=== PATIENT | male | born 1965 | race African-American/Black ===

== ENCOUNTER 2019-05-29 02:30 | Inpatient (IN) | payer OTHER ==
[~2019-05-29] VITALS: Ht 188 cm; Wt 149.2 kg
[~2019-05-29 02:30] MED LIST: CEFDINIR300 MG PO; COREG; JANTOVEN10 MG PO
[2019-05-29 02:31] VITALS: BP 180/90
--- NOTE | 2019-05-29 02:40 | NUR ---
PATIENT TO CT AT THIS TIME
--- NOTE | 2019-05-29 03:06 | NUR ---
CTA AT THIS TIME. PT SOMNOLENT, BUT AROUSABLE.
[2019-05-29 03:08] LABS: ABSOLUTE NEUTROPHILS 10.2 thou/uL (1.4-8.2); BASOPHILS 0.3 % (0.0-2.0); EOSINOPHILS 0.7 % (0.0-3.0); HEMATOCRIT 39.5 % (42.0-52.0); HEMOGLOBIN 13.1 gm/dL (14.0-18.0); LYMPHOCYTES 7.4 % (24.0-44.0); MCH 27.8 pg (26.0-34.0); MCV 84.2 fL (80.0-100.0); MONOCYTES 5.1 % (1.0-8.0); PLATELET COUNT 176 thou/uL (150-400); POLYS 86.5 % (36.0-66.0); RDW 15.3 % (10.5-14.5); WBC 11.8 thou/uL (4.0-11.0)
--- NOTE | 2019-05-29 03:08 | NUR ---
MOTHER AND UNCLE AT BEDSIDE. STATES SHE RECEIVED A PHONE CALL AT 2300 WHERE PATIENT STATED THAT HE WAS FEELING DIZZY. MOTHER STATES THAT PATIENT WAS SLURRING HIS WORDS. CO-WORKER, MICHELLE, WAS CALLED AND STATES HE LAST SAW THE PATIENT ACTING NORMAL AT 2230. STATES THAT SECURITY CALLED AND NOTIFIED HIM THAT PATIENT WAS SEEN SHORTLY AFTER MIDNIGHT CLOCKING OUT AND WAS SWEATING PROFUSELY, SHAKY AND WOBBLY. PATIENT'S CO-WORKER IS MICHELLE [phone].
[2019-05-29 03:09] LABS: POC CA IONIZED 3.4 mg/dL (4.5-5.3); POC CREATININE 1.2 mg/dL (0.6-1.3); POC HEMOGLOBIN 8.5 g/dL (14.0-18.0); POC POTASSIUM 5.5 mmol/L (3.5-5.1)
[2019-05-29 03:20] LABS: ANION GAP 9 mmol/L (7-16); BUN 40 mg/dL (7-18); CALCIUM 9.3 mg/dL (8.5-10.1); CHLORIDE 95 mmol/L (98-107); CO2 26 mmol/L (21-32); CREATININE 2.2 mg/dL (0.7-1.3); GLUCOSE 401 mg/dL (74-106); POTASSIUM 4.1 mmol/L (3.5-5.1); SODIUM 130 mmol/L (136-145)
[2019-05-29 03:22] LABS: APTT 47.1 Seconds (24.5-32.8); INR 3.3; PROTIME 33.9 Seconds (9.3-11.4)
[2019-05-29 03:31] LABS: ALBUMIN 3.5 g/dL (3.4-5.0); SGOT 17 U/L (15-37); SGPT 31 U/L (30-65); TOTAL BILIRUBIN 0.8 mg/dL (<0.1-1.0); TOTAL PROTEIN 8.1 g/dL (6.4-8.2); TROPONIN-I <0.06 ng/mL (<0.06)
[2019-05-29] MEDS ORDERED: COREG25 MG PO (03:31)
[2019-05-29] MEDS ORDERED: LIPITOR 20 MG T20 M1 PO (03:31)
[2019-05-29] MEDS ORDERED: TRIAMTERENE-HC1 EAC2 PO (03:32)
[2019-05-29] MEDS ORDERED: COZAAR 25 MG TA25 M1 PO ×2 (03:32→03:33)
[2019-05-29] MEDS ORDERED: AMARYL4 MG PO (03:32)
--- NOTE | 2019-05-29 03:33 | NUR ---
PHARMACY NOTIFIED THAT TPA IS NOT TO BE GIVEN BASED ON EXCLUSION CRITERIA AND INR LEVEL. (CURRENT LEVEL 3.3) NEUROLOGY - V[place]Y IS ON HIS WAY TO EVALUATE PATIENT. WAS INFORMED THAT NIHSS SCORE HAS INCREASED FROM 7 TO 12 UPON REPEAT. ED PROVIDER BACK TO BEDSIDE FOR RE-EVALUATION
[2019-05-29 03:36] LABS: URINE BILIRUBIN NEGATIVE (Negative); URINE BLOOD 1+ (Negative); URINE CLARITY CLEAR; URINE COLOR YELLOW; URINE GLUCOSE-RANDOM* 3+ (Negative); URINE KETONES NEGATIVE (Negative); URINE LEUKOCYTES NEGATIVE (Negative); URINE NITRITE NEGATIVE (Negative); URINE PROTEIN (DIPSTICK) NEGATIVE (Negative); URINE UROBILINOGEN 0.2 E.U./dl (0.2-1.0)
[2019-05-29 04:06] LABS: BACTERIA 1-9 Few /HPF (None Seen); CASTS None Seen /LPF (None Seen); CRYSTALS None Seen /LPF (None Seen); SQUAMOUS >10 Many /LPF (0-3); URINE RBC 3-10 Few /HPF (0-2); URINE WBC 0-5 Rare /HPF (0-5)
[2019-05-29 04:27] LABS: AMP/METHAMP Negative (Negative); BARBITURATES Negative (Negative); BENZODIAZEPINES Negative (Negative); COCAINE Negative (Negative); METHADONE Negative (Negative); OPIATES Negative (Negative); PCP Negative (Negative)
[2019-05-29 08:30] VITALS: BP 154/88
[2019-05-29 08:57] LABS: HEMOGLOBIN 12.7 gm/dL (14.0-18.0); MCH 27.9 pg (26.0-34.0); MCHC 33.3 g/dL (28.0-37.0); MCV 83.9 fL (80.0-100.0); RBC 4.53 mil/uL (4.50-6.00); RDW 15.4 % (10.5-14.5); WBC 9.4 thou/uL (4.0-11.0)
[2019-05-29 09:10] LABS: ALBUMIN 3.1 g/dL (3.4-5.0); ANION GAP 8 mmol/L (7-16); BUN 34 mg/dL (7-18); CALCIUM 8.9 mg/dL (8.5-10.1); CHLORIDE 96 mmol/L (98-107); CO2 28 mmol/L (21-32); CREATININE 1.9 mg/dL (0.7-1.3); GLUCOSE 336 mg/dL (74-106); MAGNESIUM 1.7 mg/dL (1.8-2.4); POTASSIUM 3.9 mmol/L (3.5-5.1); SGOT 13 U/L (15-37); SGPT 29 U/L (30-65); SODIUM 132 mmol/L (136-145); TOTAL BILIRUBIN 0.8 mg/dL (<0.1-1.0); TOTAL PROTEIN 7.3 g/dL (6.4-8.2)
[2019-05-29 09:31] LABS: CHOLESTEROL 114 mg/dL (<200); HDL CHOLESTEROL 26 mg/dL (>40); LDL CHOLESTEROL 59 mg/dL (<100); TC:HDL 4.4 Ratio (Not establshd); TRIGLYCERIDE 146 mg/dL (<150); VLDL 29 mg/dL (<40)
--- NOTE | 2019-05-29 10:01 | HC ---
[facility] [place] [address] CONSULTATION Name: BISMARK STEIN Room #: 355-P ADM IN M.R.#: [id number] Admission: 05/29/19 Attend Phys: Juan Corbin MD Discharge: Date of : 69 Report #: [id number] THIS REPORT FOR: //name// CC: FAM unknown Leti Esquivel DATE OF SERVICE: 05/29/2019 HISTORY OF PRESENT ILLNESS: This is a 53-year-old male patient who is unable to provide any history at all. The patient follows simple commands intermittently, but on my examination, he has no speech. I talked to the emergency room physician extensively and looks like the symptoms started between 10:30 to 11:00. The best I can tell from emergency room physician, the symptom may have progressed since that time because around 10:30 or 11:00 or somewhere along the line, he had some speech, but when I examined him, he really does not have any speech. Before a consultation for Neurology was called, the emergency room physician has done a noncontrast CT scan of the head and subsequently, she has done a CT stroke protocol, which is CT angiogram and perfusion. All of it was done before a Neurology consultation was called. As I understood from her, the CT was showing some chronic changes, but no acute changes, but she has not gotten the report of the CT angiogram and perfusion and she was trying to get that. Because of time limitation, I did the quick review of history as well as quick examination. This patient has a history of hypertension, diabetes, atrial flutter. He was on dialysis. He has a mitral valve replaced. He is on sodium and subsequently, his INR came out to be 3.3. PHYSICAL EXAMINATION: Limited. He barely opens his eyes. When I open his eyes, he does not move his eyes in any direction for me. 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 He can move the left side. He can follow simple commands intermittently, but he is not able to express anything at all. IMPRESSION: Clinically, it would appear this patient had some catastrophic event. My bigger concern will be that he may have had basilar artery thrombosis or a large left hemispheric stroke. I asked the emergency room physician to contact the Radiology again because we need the CT angiogram to be read as soon as possible. My concern is that if he has something in the basilar artery or in any of the other major vessel, he needs to be transferred as soon as possible. As mentioned above, his noncontrast CT of the head and CT angiogram and perfusion was done before the consultation was requested. If this patient stays here, I will also like to have a stat MRI of the brain and [place] [address] CONSULTATION Name: BISMARK STEIN Room #: 355-P [facility] IN .R.#: [id number] Admission: 05/29/19 Attend Phys: Juan Corbin MD Discharge: Date of : 69 Report #: [id number] him up for any evidence of endocarditis because that will predispose the patient to bleed. We have to have neurosurgical coverage in this hospital to admit this kind of patient here and if there is any intervention required, we will not be able to do that here. I am waiting for the result for the CT angiogram and I will discuss with the emergency room physician, but my recommendation was also to give him at least some fluids or maybe consult Nephrology because he got some contrast and his creatinine is 2.8 and GFR is only 38. Thank you very much. Addendum. This addendum is being added at the time of signing this note and is a log of the events since I dictated my consult. Patient's CT angiogram and perfusion did not demonstrate any blockage in the large vessels. I personally called the radiologist who read that and he indicated that the basilar artery was small but patent. I also tried to review the films. I discussed the patient with the emergency room physician again and recommended that we get this reviewed by neuroradiologist and she did get it reviewed by neuroradiologist and they indicated that no intervention can be done and recommended that the patient stays here. I recommended MRI of the brain to be done if the patient's heart valve is compatible with MRI. MRI was done and it demonstrated left thalamic stroke. He had a prior right-sided stroke predisposing him for pseudobulbar features. It is a small vessel stroke and their deficit can fluctuate for several days and typically becomes worse over a period of time as happened in this patient's case. Unfortunately not much can be done acutely. He is not TPA candidate because of his INR and being on Coumadin. He is not an interventional candidate and he was evaluated for that. Main management is going to be a very close observation and PT OT and rehabilitation. I also may mention that the patient got contrast. I talked to emergency room physician and she indicated that she gave contrast because I stat creatinine was 1.2 and it is clearly documented in the record that is what I stat creatinine has shown. It looks like that was lab errors and because of that I will recommend consulting nephrology for the management to avoid any renal injury especially in light of the patient's prior kidney problems. He appears to be doing well in that regard and in fact his creatinine is down to 1.9 from his baseline of 2.2. Patient had a stroke in spite of being fully anticoagulated. He appeared to have a small vessel disease. However he will require an extensive workup to see what can be done to prevent another stroke from happening in future and from what ever the initial grade exam was he will probably require extensive rehabilitation. More than 70 minutes of time was spent taking care of this patient and majority of that time was spent counseling and coordinating his care including reviewing his films and talking to multiple health resident care manager [address] [address] CONSULTATION Name: EMILBISMARK L Room #: 355-[facility] IN [facility].#: [id number] Admission: 05/29/19 Attend Phys: Juan Corbin MD Discharge: Date of : 69 Report #: [id number] patient was checked out to Dr. Salomon this morning and she will follow-up with you starting today. <ELECTRONICALLY SIGNED> By: Thee Franklin MD 05/29/19 1001 0414 0444 Thee Franklin MD /nt
[2019-05-29 11:39] VITALS: BP 151/82
[2019-05-29 13:25] LABS: CALCIUM 9.5 mg/dL (8.5-10.1); CREATININE 2.2 mg/dL (0.7-1.3); PHOSPHORUS 2.7 mg/dL (2.5-4.9)
--- NOTE | 2019-05-29 14:12 | EKG ---
[address] [place] [address] ELECTROCARDIOGRAM REPORT Name: BISMARK STEIN Dayana Room #: 355-P ADM IN M.R.#: [id number] Admission: 05/29/19 Attend Phys: Juan Corbin MD Discharge: Date of : 69 Report #: [id number] THIS REPORT FOR: //name// [facility] ED Test Date: 2019-05-29 Test Time: 03:18:37 Pat Name: BISMARK STEIN Department: Room: [facility] Gender: M Database Admin: huey : 1965 Requested By: Leti Esquivel Order Number: [id number] MD: Romero Reed Measurements Intervals [place] Rate: 77 P: 80 CA: 205 QRS: 11 QRSD: 83 T: 47 QT: 399 QTc: 452 Interpretive Statements Sinus rhythm Borderline prolonged CA interval Compared to ECG 05/27/2013 20:08:32 No significant change was found Electronically Signed On 05-29-2019 14:12:20 CDT by Romero Reed [email or web address] <ELECTRONICALLY SIGNED> By: Romero Reed MD, [facility] 05/29/19 1412 0318 0318 Romero Reed MD, [facility] /EPI
--- NOTE | 2019-05-29 14:19 | NUR ---
ASSESSMENT: CM REVIEWED CHART AND MET WITH PATIENT AT THE BEDSIDE. PT WAS ADMITTED FOR POSSIBLE STROKE. PT REPORTS HE LIVES IN A HOUSE ALONE. PT REPORTS HE HAS ABOUT 12 STEPS WITH HANDRAILS TO ENTER TO THE MAIN LEVEL. PT REPORTS ONCE ON THE MAIN LEVEL HE HAS NO MORE STEPS. PT REPORTS THAT HE AMBULATES INDEPENDENTLY. PT STATES HE HAS A GRAB BAR IN THE SHOWER. CM DISCUSSED ROLE. WAITING ON PT/OT TO SEE PATIENT AND 5N HAS BEEN CONSULTED. IF PATIENT QUALIFIES FOR 5N ACUTE REHAB HE IS AGREEABLE AND WE WILL HAVE TO SEEK INSURANCE AUTH. 5N LIASON NOTIFIED AND FOLLOWING PATIENT. AWAITING INPUT FROM 5N AND PT/OT EVALS. CM WILL CONTINUE TO FOLLOW TO ASSIST NEEDED.
--- NOTE | 2019-05-29 15:45 | HC ---
[facility] [place] [address] CONSULTATION Name: BISMARK STEIN Room #: 355-P ADM IN M.R.#: [id number] Admission: 05/29/19 Attend Phys: Juan Corbin MD Discharge: Date of : 69 Report #: [id number] THIS REPORT FOR: //name// CC: FAM unknown Juan Corbin DATE OF SERVICE: 05/29/2019 CARDIOLOGY CONSULTATION. INDICATION: Mental status change. HISTORY OF PRESENT ILLNESS: This is a 53-year-old gentleman with a past medical history significant for endocarditis, mitral valve replacement, CVA, diabetes mellitus, hypertension, paroxysmal atrial fibrillation, presenting with slurred speech. Apparently, he was at work and developed diaphoresis with difficulty with his speech. The patient reports that he was unsteady with his gait and did not feel well. He reports not eating normally for the past several days. He denies any fevers, chills, vomiting or diarrhea. He did have some abdominal pain. He was brought to the hospital for further evaluation. An MRI reveals an acute infarct. 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 ALLERGIES: None. MEDICATIONS: At home include Lipitor 10 mg, Coreg 25 mg b.i.d., Amaryl, insulin, Dyazide once a day and warfarin as directed. SOCIAL HISTORY: Denies tobacco use. FAMILY HISTORY: Negative for premature CAD. REVIEW OF SYSTEMS: A full 10-point review of systems performed. Only the pertinent positives and negatives are described in the HPI. PHYSICAL EXAMINATION: VITAL SIGNS: Blood pressure is 130/60, heart rate is 70 beats per minute. GENERAL APPEARANCE: This is an overweight male in no acute respiratory distress. HEENT: Normocephalic, atraumatic. Oral mucosa moist. NECK: Supple. LUNGS: Clear to auscultation. [facility] [address] [place] [address] CONSULTATION Name: BISMARK STEIN Room #: [address] [place] [address] [place] [facility].#: [id number] Admission: 05/29/19 Attend Phys: Juan Corbin MD Discharge: Date of : 69 Report #: [id number] CARDIAC: Regular rate and rhythm, S1, S2 positive. ABDOMEN: Protuberant, soft, nontender. EXTREMITIES: No cyanosis, 1+ bilateral edema. LABORATORY VALUES: White count is 9.4, hemoglobin is 12.7. INR is 3.3. Creatinine is 1.9. MRI: MRI reveals an acute left thalamic infarct, old posterior right MCA infarct. ASSESSMENT AND PLAN: 1. Cerebrovascular accident/slurred speech, his speech has improved, presented with gait instability/weakness and slurred speech. MRI findings noted. We will need an echo, rule out embolic causes. He has no history of fever, no symptoms to suggest endocarditis. However, given his prior history, we would check cultures. Agree with proceeding with a RODRIGUEZ. 2. Hypertension, stable blood pressure, continue with medications. 3. Mechanical prosthetic valve, we will check an echo, continue with warfarin therapy. 4. Diabetes mellitus, continue with insulin and check fingersticks. 5. Edema, can resume diuretic. <ELECTRONICALLY SIGNED> By: Raymundo Eaton MD 05/29/19 1545 0926 1049 Raymundo Eaton MD /nt
[2019-05-29 16:03] VITALS: BP 153/81
--- NOTE | 2019-05-29 16:21 | NUR ---
ASSUMED CARE OF PATIENT AT ADMISSION AROUND 0800, PATIENT SCAN SHOWED HE HAD A CVA. CONDUCTED NIHSS ASSESSMENTS Q4 WITH PATIENT RECIEVING A SCORE OF 7 THEN 8 THEN BACK TO 7. PATIENT HAS BEEN DROWSY ALL DAY. PATIENT PASSED SWALLOW STUDY WITH SPEECH THERAPY AND IS EATING WELL. PATIENT'S FATHER AND MOTHER HAVE BEEN VISITING THROUGHOUT THE DAY. FOCUS TODAY HAS BEEN MONITORING PATIENTS NEURO STATUS WHICH HAS REMAINED ABOUT THE SAME ALL DAY.
[2019-05-29 19:28] VITALS: BP 125/76
[2019-05-29 23:57] VITALS: BP 151/95
[2019-05-30 04:04] VITALS: BP 146/86
[2019-05-30 04:07] LABS: GLYCOHEMOGLOBIN (HGB A1C) 13.7 % (4.8-5.6)
[2019-05-30 05:14] LABS: HEMATOCRIT 37.2 % (42.0-52.0); HEMOGLOBIN 12.4 gm/dL (14.0-18.0); MCH 27.9 pg (26.0-34.0); MCHC 33.3 g/dL (28.0-37.0); RBC 4.43 mil/uL (4.50-6.00); RDW 15.6 % (10.5-14.5); WBC 7.9 thou/uL (4.0-11.0)
[2019-05-30 05:17] LABS: CALCIUM 8.9 mg/dL (8.5-10.1); CREATININE 1.7 mg/dL (0.7-1.3); MAGNESIUM 1.8 mg/dL (1.8-2.4); POTASSIUM 4.1 mmol/L (3.5-5.1)
[2019-05-30 05:27] LABS: CHOLESTEROL 118 mg/dL (<200); HDL CHOLESTEROL 28 mg/dL (>40); LDL CHOLESTEROL 69 mg/dL (<100); TC:HDL 4.2 Ratio (Not establshd); TRIGLYCERIDE 108 mg/dL (<150); VLDL 22 mg/dL (<40)
[2019-05-30 05:30] LABS: SERUM ASSESSMENT Clear
[2019-05-30 07:10] VITALS: BP 150/79
--- NOTE | 2019-05-30 08:31 | NUR ---
progress pt a/o x4 not oob this shift slept most of night nih scale scoring 6 to 7 seems to have clearer speech no difficulty swallowing able to open left eye more still sensitive to light propeller tester are equal moderately strong, legs have moderate strength and pt has been exercising when awake in bed scd's applied continue to monitor
[2019-05-30 11:16] VITALS: BP 134/80
--- NOTE | 2019-05-30 12:39 | HC ---
[facility] [place] [address] [place] [address] CONSULTATION Name: BISMARK STEIN Room #: 355-P ADM IN M.R.#: [id number] Admission: 05/29/19 Attend Phys: Juan Corbin MD Discharge: Date of : 69 Report #: [id number] THIS REPORT FOR: //name// CC: FAM unknown Juan Corbin DATE OF SERVICE: 05/29/2019 CONSULTING PHYSICIAN: Dr. Charlene Rivera. REASON FOR CONSULTATION: Uncontrolled type 2 diabetes mellitus. HISTORY OF PRESENT ILLNESS: This is a 53-year-old male patient whose medical background is noted for type 2 diabetes mellitus, chronic kidney disease, hypertension, history of CVA, hyperlipidemia. The patient was brought yesterday to [facility]'s ER following mental status changes and slurred speech. The patient was also reported as having diaphoresis and confusion as well as lower extremity weakness. When I interviewed him today, he was able to respond to verbal stimuli, but was rather aphasic and I could not make some of his answers at least. Also, he preferred to close his eyes shut throughout most of my interview with him. The patient knows that he has had type 2 diabetes mellitus for multiple years. He said that he does not check his blood sugars often at home and that he does not have much issue with hypoglycemia. When asked about his home-based antidiabetic regimen, he implicated that he does take injections, but then could not elaborate on the type or dosage of such injections. His mother also indicated that he is likely taking insulin but not Levemir because she knows this one specifically. His chart notes that he is on glimepiride 4 mg daily. Given the patient's limited interaction, I was not able to discern whether he has a documented retinopathy or neuropathy. REVIEW OF SYSTEMS: CONSTITUTIONAL: Fatigue, tiredness, but not fever or chills. PULMONARY: No shortness of breath, cough or hemoptysis. CARDIAC: Negative for chest pain, palpitations, syncope or presyncope. GASTROINTESTINAL: Negative for abdominal pain, nausea, vomiting or changes in bowel movement frequency. NEUROLOGY: Noted for aphasia, altered level of consciousness, but no seizures or loss of consciousness. No reports of numbness. SKIN: No ulceration, rash or itching. Otherwise, review of systems is noncontributory other than those mentioned in HPI. PAST MEDICAL HISTORY: [address] [address] CONSULTATION Name: BISMARK STEIN Room #: 355-P [facility] IN [facility]#: [id number] Admission: 05/29/19 Attend Phys: Juan Corbin MD Discharge: Date of : 69 Report #: [id number] 1. Type 2 diabetes mellitus. 2. Hypertension. 3. Hyperlipidemia. 4. History of cerebrovascular accident. 5. History of mitral valve replacement. 6. Obesity. 7. Chronic kidney disease with a history of acute renal injury, requiring dialysis in the past. OUTPATIENT MEDICATIONS: Known for glimepiride 4 mg daily, losartan 25 mg daily, atorvastatin 20 mg daily, carvedilol 25 mg b.i.d., warfarin 10 mg daily, triamterene/hydrochlorothiazide 37.5/25 mg daily. ALLERGIES: No known drug allergies. FAMILY HISTORY: Noncontributory. SOCIAL HISTORY: Single, lives alone. Denies use of tobacco, alcohol or illicit drugs. PHYSICAL EXAMINATION: GENERAL: Middle-aged -[place] male patient who seems sleepy, lethargic, but not in apparent distress. VITAL SIGNS: Blood pressure is 151/82 mmHg, heart rate is 67 beats per minute, respirations 20 per minute, temperature of 36.4 degrees. HEENT: Anicteric sclerae. Intact extraocular motions. NECK: Supple, without JVD, carotid bruits, lymphadenopathy. I do not appreciate thyromegaly. CHEST: Noted for distant breath sounds, scattered rales, but no crackles or wheezes. CARDIOVASCULAR: Regular rate and rhythm without murmurs or gallops. ABDOMEN: Obese, but soft and lax without tenderness or organomegaly. Has active bowel sounds. EXTREMITIES: Lower extremity exam is noted for trace ankle edema bilaterally, but no skin breaks or lacerations. SKIN: Intact without ulceration or discoloration. NEUROLOGIC: Lethargic, but arousable. He is not able to answer all of my questions. He is a bit aphasic. PSYCHIATRIC: Psych evaluation could not be performed at the present time due to the limited interaction the patient has displayed. LABORATORY RESULTS: Sodium 132, potassium 3.9, chloride 96, CO2 of 28, anion gap 8, BUN 34, creatinine 1.9, glucose 336, AST 13, calcium 8.9, magnesium 1.7, alkaline phosphatase 117, ALT 29, total protein 7.3, albumin 3.1, GFR 46. Total cholesterol 114, triglycerides 146, HDL 26, LDL 59. Tox screen was done and was negative. White blood count 9.4, hemoglobin 12.7, hematocrit 38, platelets 165, [address] [address] CONSULTATION Name: BISMARK STEIN Room #: 355-P [facility] IN [place].#: [id number] Admission: 05/29/19 Attend Phys: Juan Corbin MD Discharge: Date of : 69 Report #: [id number] ____ 8.5. Hemoglobin A1c was ordered and is pending. TSH is 1.198. Ionized calcium is low at 3.4. ASSESSMENT AND PLAN: 1. Type 2 diabetes mellitus, uncontrolled. The patient seems to have an uncontrolled baseline, although it is not possible at the present time to collect a solid image of that baseline given the patient's limited interaction. Blood glucose values since arrival to the hospital have been rather uncontrolled and outside the desired range with these ranging from 297-399 mg/dL. That being said, I will place the patient on a basal bolus regimen in the form of Lantus insulin 18 units daily to go along with Humalog supplemental scale moderate dosage and continue to monitor his blood glucose values every 6 hours to adjust his regimen as needed. Hemoglobin A1c was ordered and is pending and should shed some light on the patient's baseline status. 2. Hypertension. The patient's overall blood pressure control is improving. He is to continue with the current regimen for the time being. 3. Hyperlipidemia. The patient's lipid panel is indicative of adequate control. He is to continue with that. 4. Hypocalcemia. This is noticeable as significant. I will investigate this further with a PTH and vitamin D levels. It is notable that his magnesium is low, which could be at least partially responsible for the hypocalcemia. I certainly appreciate this consultation by Dr. Rivera. <ELECTRONICALLY SIGNED> By: Alfonzo Hughes MD 05/30/19 1239 1236 2220 Alfonzo Hughes MD /nt
[2019-05-30 14:14] LABS: INR 3.6; PROTIME 36.8 Seconds (9.3-11.4)
--- NOTE | 2019-05-30 14:17 | 2DMMODE ---
[facility] [address] [facility] [address] [place] [address] 2 D/M-MODE ECHOCARDIOGRAM Name: EMILBISMARK L Room #: 355-P [facility] IN M.R.#: [id number] Admission: 05/29/19 Attend Phys: Juan Corbin, Discharge: Date of : 69 Date of Service: 05/30/19 1416 Report #: [id number] THIS REPORT FOR: //name// APPROVED REPORT Study performed: 05/30/2019 09:39:11 EXAM: Comprehensive 2D, Doppler, and color-flow Echocardiogram Patient Location: Bedside Room #: 355 Status: on-call BSA: 2.69 HR: 70 bpm BP: 150/75 mmHg Rhythm: NSR Other Information Study Quality: Adequate Indications Mitral valve replacement. Hx: Endocarditis, PAF, CVA, DM, morbid obesity. 2D Dimensions RVDd: 38.69 mm IVSd: 13.00 (7-11mm) LVOT Diam: 20.10 (18-24mm) LVDd: 45.16 mm PWd: 13.00 (7-11mm) Ascending Ao: 32.22 (22-36mm) LVDs: 30.25 (25-40mm) Aortic Root: 32.60 mm Volumes Left Atrial Volume (Systole) Single Plane 4CH: 65.87 mL Single Plane 2CH: 77.98 mL LA ESV Index: 28.00 mL/m2 Aortic Valve AoV Peak James.: 1.37 m/s AO Peak Gr.: 7.46 mmHg LVOT Max P.27 mmHg LVOT Max V: 0.90 m/s SMITA Vmax: 2.10 cm2 Mitral Valve MV Decel. Time: 272.57 ms MV PHT: 79.04 ms [facility] [place] [address] 2 D/M-MODE ECHOCARDIOGRAM Name: BISMARK STEIN Dayana Room #: [address] [place] [address] [place] ..#: [id number] Admission: 05/29/19 Attend Phys: Juan Corbin, Discharge: Date of : 69 Date of Service: 05/30/19 1416 Report #: [id number] MVA (PHT): 2.72 cm2 IVRT: 38.06 ms Pulmonary Valve PV Peak James.: 1.00 m/s PV Peak Gr.: 3.99 mmHg Left Ventricle The left ventricle is normal size. There is normal LV segmental wall motion. Mild concentric left ventricular hypertrophy. Left ventricular systolic function is normal. LVEF is 60-65%. Right Ventricle The right ventricle is normal size. The right ventricular systolic function is normal. Atria The left atrium size is normal. The right atrium size is normal. Aortic Valve The aortic valve is normal in structure. No aortic regurgitation is present. There is no aortic valvular stenosis. Mitral Valve There is a mechanical mitral valve. Mean pressure gradient of 5mmHg. Interrogation of regurgitaion is inadequate due to valve artifact. Tricuspid Valve The tricuspid valve is normal in structure. There is no tricuspid valve regurgitation noted. Unable to assess PA pressure. Pulmonic Valve The pulmonary valve is normal in structure. There is no pulmonic valvular regurgitation. Great Vessels The aortic root is normal in size. The ascending aorta is normal in size. IVC is not well visualized. Pericardium There is no pericardial effusion. <Conclusion> The left ventricle is normal size. Mild concentric left ventricular hypertrophy. [address] [address] 2 D/M-MODE ECHOCARDIOGRAM Name: BISMARK STEIN Dayana Room #: 355-P [facility] IN ..#: [id number] Admission: 05/29/19 Attend Phys: Juan Corbin, Discharge: Date of : 69 Date of Service: 05/30/19 1416 Report #: [id number] LVEF is 60-65%. The right ventricle is normal size. The left atrium size is normal. The right atrium size is normal. The aortic valve is normal in structure. No aortic regurgitation is present. There is no aortic valvular stenosis. There is a mechanical mitral valve. Mean pressure gradient of 5mmHg. The tricuspid valve is normal in structure. There is no pericardial effusion. <ELECTRONICALLY SIGNED> By: Porfirio Badillo MD 05/30/19 [phone] Porfirio Badillo MD /INF
--- NOTE | 2019-05-30 15:39 | NUR ---
PT WALKED WITH PT X 2 TODAY AND DID VERY WELL USING WALKER/GAIT AND 1 ASSIST...HE DOES NOT DRAG FEET AND IS VERY STEADY...
[2019-05-30 15:51] VITALS: BP 152/81
--- NOTE | 2019-05-30 19:09 | NUR ---
FALL PREC IN PLACE..WALKS WITH PT X 2 WITH STEADY GAIT...INSTRUCTED TO CALL FOR ASSIST WHEN OUT OF BED...
[2019-05-30 19:20] VITALS: BP 109/57
--- NOTE | 2019-05-31 03:16 | NUR ---
PATIENT IS ADVANCING IN HIS CARE PLAN. VITAL SIGNS STABLE WITH PATIENT HAVING NO COMPLAINTS OF NAUSEA. PATIENT DID COMPLAIN OF PAIN IN LOWER EXTREMITY WHICH WAS TREATED EFFECTIVELY WITH MEDICATION AND REPOSITIONING. ALERT AND ORIENTED THROUGHOUT SHIFT PATIENT WAS ABLE TO PARTICIPATE IN CARE AND CALL APPROPRIATELY FOR NEEDS. NIH ASSESSMENT PER PROVIDERS ORDER WITH PATIENT SCORING LOW. UP TO THE BEDSIDE COMMODE WITH ASSISTANCE INCIDENT FREE, PATIENT IS CONSIDERED A HIGH FALL RISK. CONTINUE PLAN OF CARE.
[2019-05-31 04:14] VITALS: BP 122/67
[2019-05-31 07:06] VITALS: BP 148/81
[2019-05-31 07:17] LABS: HEMOGLOBIN 12.6 gm/dL (14.0-18.0); MCH 27.9 pg (26.0-34.0); MCHC 33.1 g/dL (28.0-37.0); MCV 84.3 fL (80.0-100.0); RBC 4.51 mil/uL (4.50-6.00); RDW 15.4 % (10.5-14.5); WBC 6.3 thou/uL (4.0-11.0)
[2019-05-31 07:30] LABS: CALCIUM 8.8 mg/dL (8.5-10.1); CREATININE 1.8 mg/dL (0.7-1.3); INR 3.5; MAGNESIUM 1.6 mg/dL (1.8-2.4); POTASSIUM 3.9 mmol/L (3.5-5.1); PROTIME 36.4 Seconds (9.3-11.4)
[2019-05-31 11:12] VITALS: BP 142/87
[2019-05-31 15:48] VITALS: BP 142/79
--- NOTE | 2019-05-31 17:32 | NUR ---
ASSUMED CARE OF PT AT 0700. PT AOX4 IN NO ACUTE DISTRESS. NIH 1. AMBULATED WITH PT. COMPLAINS OF PAIN TO R FOOT WITH ACTIVITY. POST OP BOOT ORDERED PER ORTHO. NOW COMPLAINING OF R KNEE PAIN AFTER PHYSICAL THERAPY - MINIMAL RELIEF WITH HYDROCODONE - VOLTEREN GEL ORDERED. BLOOD SUGARS IMPROVED -ADJUSTED PER ENDO. ANTICIPATING D/C TO REHAB TOMORROW. PT PROGRESSING TOWARD POC GOALS.
[2019-05-31 19:05] VITALS: BP 129/70
--- NOTE | 2019-06-01 03:11 | NUR ---
PATIENT IS PROGRESSING IN HIS CARE PLAN. VITAL SIGNS STABLE WITH PATIENT HAVING NO COMPLAINTS OF NAUSEA. PATIENT COMPLAINED OF PAIN IN RIGHT FOOT AND KNEE WHICH WAS TREATED APPROPRIATELY THROUGH MEDICATIONS AND NON PHARMACOLOGICAL INTERVENTION. FULLY ORIENTED, PATIENT IS ABLE TO CALL APPROPRIATELY FOR NEEDS AND PARTICIPATE IN CARE. NIH COMPLETED PER ORDER WITH PATIENT SCORING ONE. HE HAS BEEN NPO FROM MIDNIGHT IN ANTICIPATION OF TODAYS PROCEDURE. PATIENT IS ANXIOUS FOR DISCHARGE TO [facility] SOON SO THAT HE CAN BE "ONE STEP CLOSER TO HOME." CONTINUE PLAN OF CARE.
[2019-06-01 03:12] VITALS: BP 124/80
[2019-06-01 05:03] LABS: HEMATOCRIT 35.8 % (42.0-52.0); HEMOGLOBIN 12.1 gm/dL (14.0-18.0); MCH 28.7 pg (26.0-34.0); MCHC 33.8 g/dL (28.0-37.0); RBC 4.21 mil/uL (4.50-6.00); RDW 15.8 % (10.5-14.5); WBC 8.9 thou/uL (4.0-11.0)
[2019-06-01 05:11] LABS: CALCIUM 8.7 mg/dL (8.5-10.1); CREATININE 1.7 mg/dL (0.7-1.3); MAGNESIUM 1.6 mg/dL (1.8-2.4); POTASSIUM 3.9 mmol/L (3.5-5.1)
[2019-06-01 05:12] LABS: INR 3.9; PROTIME 40.2 Seconds (9.3-11.4)
[2019-06-01 07:06] VITALS: BP 137/80
--- NOTE | 2019-06-01 10:08 | TEE ---
[facility] [address] [place] [address] TRANSESOPHAGEAL ECHOCARDIOGRAM Name: EILEENROMANBISMARK L Room #: 355-P [facility]#: [id number] Admission: 05/29/19 Attend Phys: Juan Corbin, Discharge: Date of : 69 Date of Service: 06/01/19 1008 Report #: [id number] THIS REPORT FOR: //name// APPROVED REPORT Study performed: 06/01/2019 08:55:34 EXAM: Comprehensive 2D, Doppler, and color-flow Echocardiogram Patient Location: [facility] Room #: 11 Status: routine BSA: 2.69 HR: 70 bpm BP: 136/73 mmHg Rhythm: NSR Other Information Study Quality: Excellent Indications MVR Echo Enhancing Agent Indication: Rule out Shunt Agent(s) / Amount(s) Used: Agitated Saline 7 cc Mitral Valve MV Peak Gr.: 16.56 mmHg MV Mean Gr.: 5.65 mmHg MV Max James.: 2.03 m/s MV Mean James.: 1.03 m/s MV VTI: 446.63 mm Procedure After obtaining informed consent, patient underwent transesophageal echo in the [employer]. Type of Sedation : Conscious Sedation Sedation was administered by Latrice HARTLEY. Sedation was achieved intravenously with: Versed (2 mg) Fentanyl (100 mcg) Transesophageal probe was inserted and advanced into esophagus without difficulty by Romero Reed MD. Echo enhancement indication: R/O Septal defect. Echo enhancement agent administered: Agitated Saline [facility] [address] [place] [address] TRANSESOPHAGEAL ECHOCARDIOGRAM Name: BISMARK STEIN Dayana Room #: 355-P [facility] IN .R.#: [id number] Admission: 05/29/19 Attend Phys: Juan Corbin, Discharge: Date of : 69 Date of Service: 06/01/19 1008 Report #: [id number] The RODRIGUEZ was performed without complications. Throughout the procedure, the blood pressure, pulse oximetry, cardiac rhythm, and rate were monitored. The patient tolerated the procedure without adverse effects. Recovery from conscious sedation was uneventful and vital signs were stable. Left Ventricle The left ventricle is normal size. There is normal LV segmental wall motion. There is normal left ventricular wall thickness. The left ventricular systolic function is normal. The left ventricular ejection fraction is within the normal range. LVEF is 55-60%. Right Ventricle The right ventricle is normal size. The right ventricular systolic function is normal. Atria The left atrium size is normal. The left atrial appendage appears to be oversewn/amputated. No shunting by contrast bubble injection The right atrium size is normal. Aortic Valve The aortic valve is normal in structure. No aortic regurgitation is present. There is no aortic valvular stenosis. Mitral Valve Normally functioning mechanical bileaflet mitral valve. Mean transmitral prosthetic gradient of 5 mmHg Mild mitral regurgitation, normal for this type of valve. No evidence of mitral valve stenosis. Tricuspid Valve The tricuspid valve is normal in structure. There is no tricuspid valve regurgitation noted. Pulmonic Valve The pulmonary valve is normal in structure. There is no pulmonic valvular regurgitation. Great Vessels The aortic root is normal in size. Mild scattered atherosclerosis. IVC is normal in size and collapses >50% with inspiration. Pericardium [facility] [address] [place] [address] TRANSESOPHAGEAL ECHOCARDIOGRAM Name: BISMARK STEIN Dayana Room #: 355-P [facility] IN .R.#: [id number] Admission: 05/29/19 Attend Phys: Juan Corbin, Discharge: Date of : 69 Date of Service: 06/01/19 1008 Report #: [id number] There is no pericardial effusion. <Conclusion> The left ventricular systolic function is normal. There is normal LV segmental wall motion. LVEF is 55-60%. No shunting by contrast bubble injection Both atria are normal. The left atrial appendage appears to be oversewn/amputated. The aortic valve is normal in structure. No aortic regurgitation or stenosis. Normally functioning mechanical bileaflet mitral valve. Mean transmitral prosthetic gradient of 5 mmHg Mild mitral regurgitation, normal for this type of valve. There is no pericardial effusion. <ELECTRONICALLY SIGNED> By: Romero Reed MD, [facility] 06/01/19 1008 1008 Romero Reed MD, [facility] /INF
[2019-06-01 11:19] VITALS: BP 125/74
--- NOTE | 2019-06-01 12:01 | NUR ---
ON-GOING ASSESSMENT: PT IS HAVING RODRIGUEZ TODAY AND THEN 5N IS SUBMITTING FOR INSURANCE AUTH FOR ACUTE REHAB. CM WAITING TO HEAR BACK IF INSURANCE WILL APPROVE 5N.
[2019-06-01 15:51] VITALS: BP 107/54
[2019-06-01 16:21] VITALS: BP 129/63
--- NOTE | 2019-06-01 19:25 | NUR ---
PT WORKING WITH PT/OT...REPORTS RT KNEE PAIN WHEN OOB...ICE TO RT KNEE..PAIN MEDS PRN...POSSIBLE 5N [place] IF INSURANCE AUTH
[2019-06-01 19:50] VITALS: BP 139/65
[2019-06-02 03:47] VITALS: BP 146/75
--- NOTE | 2019-06-02 04:18 | NUR ---
PATIENT IS ADVANCING IN HIS CARE PLAN. VITAL SIGNS STABLE WITH PATIENT HAVING NO COMPLAINTS OF NAUSEA. PATIENT DID COMPLAIN OF PAIN IN RIGHT KNEE/FOOT WHICH WAS TREATED APPROPRIATELY THROUGH MEDICATION AND POSITIONING. FULLY ORIENTED, PATIENT IS ABLE TO CALL APPROPRIATELY FOR NEEDS AND PARTICIPATE IN CARE. NIH IS STILL SCORED ONE. PATIENT HAS BEEN UP MULTIPLE TIMES WITH ASSISTANCE INCIDENT FREE. HE IS HIGHLY ANXIOUS TO GET TO REHAB SOON TO "GET BETTER AND GET HOME." CONTINUE PLAN OF CARE.
[2019-06-02 05:46] LABS: HEMATOCRIT 36.7 % (42.0-52.0); HEMOGLOBIN 12.2 gm/dL (14.0-18.0); MCH 28.3 pg (26.0-34.0); MCHC 33.3 g/dL (28.0-37.0); MCV 84.9 fL (80.0-100.0); RBC 4.32 mil/uL (4.50-6.00); RDW 15.7 % (10.5-14.5); WBC 8.1 thou/uL (4.0-11.0)
[2019-06-02 05:56] LABS: INR 3.5; PROTIME 36.1 Seconds (9.3-11.4)
[2019-06-02 06:01] LABS: CALCIUM 8.8 mg/dL (8.5-10.1); CREATININE 1.5 mg/dL (0.7-1.3); MAGNESIUM 1.7 mg/dL (1.8-2.4); POTASSIUM 3.8 mmol/L (3.5-5.1)
[2019-06-02 07:59] VITALS: BP 132/61
[2019-06-02] MEDS ORDERED: NOVOLOG100 UNIT/1 SUBQ ×2 (08:58)
[2019-06-02] MEDS ORDERED: COUMADIN 2 MG TA2 M1 PO (08:58)
[2019-06-02] MEDS ORDERED: LANTUS100 UNIT/M SUBQ (08:58)
--- NOTE | 2019-06-02 09:49 | NUR ---
ON-GOING ASSESSMENT: CM REVIEWEDE CHART AND MET WITH PATIENT AT THE BEDSIDE. ANAMIKA SPOKE WITH MaryN LIASACHA WHO STATES THEY HAVE INSURANCE AUTH TO ACCEPT PATIENT TODAY. CM NOTIFIED PT AND ATTENDING. PT STATES HE WILL UPDATE HIS FAMILY. ANAMIKA ALSO NOTIFIED BEDSIDE RN WHO HAS THE NUMBER FOR REPORT.
[2019-06-02 11:53] VITALS: BP 147/68
[2019-06-02] MEDS ORDERED: ST. JOSEPH ASPI81 MG PO (15:27)
--- NOTE | 2019-06-02 15:53 | NUR ---
PT RESTING TODAY...DENIES PAIN...PLANS TO [place] 5NO THIS AFTERNOON..
--- NOTE | 2019-06-03 15:34 | HC ---
[facility] [place] [address] CONSULTATION Name: BISMARK STEIN Room #: 355-P [facility] IN .R.#: [id number] Admission: 05/29/19 Attend Phys: Juan Corbin MD Discharge: 06/02/19 Date of : 69 Report #: [id number] THIS REPORT FOR: //name// CC: FAM unknown Juan Corbin DATE OF SERVICE: 05/29/2019 NEPHROLOGY CONSULTATION REASON FOR CONSULTATION: Chronic kidney disease. HISTORY OF PRESENT ILLNESS: The patient known to our service. 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 He had mitral valve replacement. Apparently, he was doing reasonably well with very little residual, developed decreased level of consciousness, severe aphasia with confusion and weakness, was brought to the Emergency Room, felt to have a CVA, started on IV heparin and creatinine, which was 2.2, fell to 1.9 with IV hydration. Of note, the patient is followed in our office. He has residual CKD. He was seen last month. His creatinine at baseline in our office was 1.8, today it is 1.9. PAST MEDICAL HISTORY: He has had the previous stroke, endocarditis, mitral valve replacement as mentioned above. He has got insulin-dependent diabetes mellitus as well and history of hypertension. HOME MEDICATIONS: Include atorvastatin 20 mg per day, carvedilol 25 mg b.i.d., glimepiride 4 mg daily, losartan 25 mg daily, triamterene/hydrochlorothiazide combination diuretic and Coumadin. FAMILY HISTORY: Negative for renal disease. SOCIAL HISTORY: Difficult to ascertain due to his mental status. REVIEW OF SYSTEMS: Difficult to ascertain due to his mental status. PHYSICAL EXAMINATION: GENERAL: This is an acutely ill-appearing gentleman. SKIN: Unremarkable. SKELETAL: Shows him to be rather obese and overweight. HEENT: Extraocular movements difficult to test. Right facial palsy is evident. No scleral icterus. Hearing and vision difficult to test. NECK: Supple. CHEST: Shows diminished breath sounds. HEART: Regular. [facility] [address] [place] [address] CONSULTATION Name: BISMARK STEIN Dayana Room #: 355-P [facility] IN [facility].#: [id number] Admission: 05/29/19 Attend Phys: Juan Corbin MD Discharge: 06/02/19 Date of : 69 Report #: [id number] ABDOMEN: Soft. EXTREMITIES: Show no edema. Pulses intact. NEUROLOGIC: Shows weakness on the right, right facial palsy and aphasia, decreased cognition. LABORATORY DATA: The creatinine is 1.9, down from 2.2 with some IV hydration. Electrolytes show sodium 132, potassium 3.9, chloride 96, bicarbonate 28, BUN 34, creatinine 1.9. ASSESSMENT: 1. Chronic kidney disease. He has chronic kidney disease with some degree of residual from his acute renal failure, likely also contributed by his diabetes and hypertension, is followed in our office and is more or less at baseline. 2. Acute cerebrovascular accident with aphasia and right hemiparesis. 3. Diabetes mellitus. 4. Hypertension. <ELECTRONICALLY SIGNED> By: Kan Vaughn MD 06/03/19 1534 1013 1022 Kan Vaughn MD /nt
== END 2019-06-02 16:27 | DRG 65 ==
LOC: ER 02:30 → EROBS 06:26 → 3W 06:26
PROVIDERS: Emergency Medicine; Internal Medicine; Nurse Practitioner; ADMIT Internal Medicine
PROC: B24BZZ4 Ultrasonography of Heart with Aorta, Transesophageal (ICD-10-PCS; principal; 2019-06-01)
DX: I63.40 Cerebral infarction due to embolism of unspecified cerebral artery (principal); G81.91 Hemiplegia, unspecified affecting right dominant side; N17.9 Acute kidney failure, unspecified; S92.331A Displaced fracture of third metatarsal bone, right foot, initial encounter for closed fracture; R47.01 Aphasia; I12.9 Hypertensive chronic kidney disease with stage 1 through stage 4 chronic kidney disease, or unspecified chronic kidney disease; E11.22 Type 2 diabetes mellitus with diabetic chronic kidney disease; I48.0 Paroxysmal atrial fibrillation; R47.81 Slurred speech; E11.65 Type 2 diabetes mellitus with hyperglycemia; E78.5 Hyperlipidemia, unspecified; N18.3 Chronic kidney disease, stage 3 (moderate); E55.9 Vitamin D deficiency, unspecified; S92.341A Displaced fracture of fourth metatarsal bone, right foot, initial encounter for closed fracture; X58.XXXA Exposure to other specified factors, initial encounter; Y93.89 Activity, other specified; Y92.89 Other specified places as the place of occurrence of the external cause; Y99.8 Other external cause status; Z86.14 Personal history of Methicillin resistant Staphylococcus aureus infection; Z86.711 Personal history of pulmonary embolism; Z95.2 Presence of prosthetic heart valve; Z79.01 Long term (current) use of anticoagulants; Z79.899 Other long term (current) drug therapy
CPT/HCPCS: 10779; 10879

== ENCOUNTER 2019-06-02 14:02 | Inpatient (IN) | payer OTHER ==
[~2019-06-02] VITALS: Ht 193 cm; Wt 157.4 kg
--- NOTE | ~2019-06-02 | PLAN ---
[facility] [place] [address] REHAB UNIT PLAN OF CARE Name: BISMARK STEIN Room #: 506-1 ADM IN M.R.#: [id number] Admission: 06/02/19 Attend Phys: Jarrett Johnson MD Discharge: Date of : 69 Report #: [id number] THIS REPORT FOR: //name// CC: Jarrett Johnson [facility] unknown DATE OF SERVICE: 06/05/2019 PROGRESS NOTE AND OVERALL PLAN OF CARE SUBJECTIVE: The patient is seen back today in followup. No new complaints. Temperature 36.8, pulse 56, respirations 18, blood pressure 156/99. He is alert, in no distress. He has some right knee discomfort, but says it is not very bothersome for him. X-ray did show a moderate suprapatellar joint effusion with some medial and lateral, degenerative arthritis, prominent enthesophyte arising from the quadriceps attachment of the patella. Uric acid was increased at 8.1. I will defer to the hospitalist if they want to try to treat this is as gout. Functionally, he has been working in therapies with transfers, min assist. Gait min assist 200 feet with a front-wheeled walker. Lower body dressing, min assist. He does have severe memory and rzno-dk-yrdzovxr cognitive deficits. ASSESSMENT: 1. Left thalamic cerebrovascular accident. 2. Left hemianopsia. 3. Right foot fractures, weightbearing as tolerated. 4. Right knee pain appears manageable per the patient. Question of gout with the elevated uric acid. We will defer to the hospitalist service. 5. History of mitral valve regurgitation on chronic anticoagulation. 6. History of endocarditis. 7. Right middle cerebral artery cerebrovascular accident in 2008. 8. Hypertension. 9. Diabetes mellitus type 2. 10. History of atrial flutter. 11. Chronic kidney disease. PLAN: The overall plan of care is based on the preadmission screen, post-admission physician evaluation and information garnered from therapy assessments. 1. Estimated length of stay is probably at least 10-14 days. 2. Medical prognosis is reasonably good. 3. Anticipated interventions includes the interdisciplinary acute inpatient rehabilitation program. 4. Anticipated functional outcomes would be for the patient to become modified independent with transfers, mobility and ADLs as well as further improvement with cognition, communication, so he can return back to the home setting. [address] [address] REHAB UNIT PLAN OF CARE Name: BISMARK STEIN Room #: 506-1 ADM IN .R.#: [id number] Admission: 06/02/19 Attend Phys: Jarrett Johnson MD Discharge: Date of : 69 Report #: [id number] 5. Discharge destination lives in a house by himself, has a number of steps to get in. 6. Expected therapy by discipline includes PT, OT and speech 1 hour per day each five days a week throughout the duration of the acute inpatient rehabilitation stay. By: 0830 0842 Jarrett Johnson MD /maritza
--- NOTE | ~2019-06-02 | H ---
[facility] [place] [address] [place] [address] HISTORY AND PHYSICAL Name: BISMARK STEIN Room #: 506-1 ADM IN .R.#: [id number] Admission: 06/02/19 Attend Phys: Jarrett Johnson MD Discharge: Date of : 69 Report #: [id number] THIS REPORT FOR: //name// CC: Jarrett Johnson [facility] unknown DATE OF SERVICE: 06/03/2019 HISTORY AND PHYSICAL/POST-ADMISSION PHYSICIAN EVALUATION HISTORY OF PRESENT ILLNESS: Please see the full admission history and physical as is dictated. The patient has been admitted for acute in-hospital inpatient rehabilitation. He is a 54-year-old -Vincentian male with an acute left thalamic CVA with some left hemianopsia. He has functional mobility and ADL deficits with cognitive concerns as well as visual spatial concerns. He has some left-sided facial droop and needs precautions with swallowing. He has a prior metatarsal fracture. He is allowed weightbearing as tolerated in a postop shoe. Please see the noted past medical history and allergies. His code status is full. SOCIAL HISTORY: He does live in a house by himself, but has a number of stairs to get in. 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 PHYSICAL EXAMINATION: GENERAL: He is pleasant. VITAL SIGNS: Temperature 98, pulse 82, respirations 18, blood pressure 186/87. NEUROLOGIC: He is a right-handed -Vincentian male, alert, appears to have some left-sided homonymous hemianopsia, although he thinks it has improved. He might have a mild depressed left nasolabial fold. CHEST: Sounded clear to auscultation. CARDIOVASCULAR: Regular rate and rhythm. ABDOMEN: Bowel sounds positive, nontender. EXTREMITIES: He does have some obesity. Functional range of motion of both upper extremities. Strength is 4-/5. Lower extremities 4-/5. Some slight tenderness in right lateral dorsal aspect of the foot. He is needing min assist with basic transfers, has some decreased balance. ASSESSMENT: A 54-year-old -Vincentian male with the following problems: 1. Acute left thalamic cerebrovascular accident. 2. Left hemianopsia. 3. Right metatarsal fractures, weightbearing as tolerated in a postop shoe. 4. History of mitral valve replacement, on chronic anticoagulation. 5. History of endocarditis. 6. Hypertension. [address] [address] HISTORY AND PHYSICAL Name: BISMARK STEIN Room #: 506-1 ADM IN [facility].#: [id number] Admission: 06/02/19 Attend Phys: Jarrett Johnson MD Discharge: Date of : 69 Report #: [id number] 7. Type 2 diabetes mellitus. 8. Chronic kidney disease. 9. History of atrial flutter. PLAN: The patient is admitted for acute in-hospital inpatient rehabilitation. From a postadmission physician evaluation perspective, there are no relevant changes since the preadmission screening. Please see the above review of prior and current medical and functional conditions and comorbidities. Please see the patient's previous and current functional status. As far as risk of complications, he has the multiple medical comorbidities as noted above. Initial plan of care involves the interdisciplinary acute inpatient rehabilitation program. Prognosis is reasonably good with estimated length of stay probably at least 10-14 days, pending progress. By: 0810 0835 Jarrett Johnson MD /nt
[~2019-06-02 14:02] MED LIST changes: +AMARYL4 MG PO; +COREG25 MG PO; +COUMADIN 2 MG TA2 M1 PO; +COZAAR 25 MG TA25 M1 PO; +LANTUS100 UNIT/M SUBQ; +LIPITOR 20 MG T20 M1 PO; +NOVOLOG100 UNIT/1 SUBQ; +TRIAMTERENE-HC1 EAC2 PO
[2019-06-02] MEDS ORDERED: ST. JOSEPH ASPI81 MG PO (15:27)
--- NOTE | 2019-06-02 17:25 | NUR ---
PT ARRIVED TO UNIT AT ABOUT 1630, AND C/O MILD PAIN IN RLE. EDEMA AND BRUIDING NOTED AT RT FOOT AND PT HAS SURGICAL SHOE FOR WB TO THAT FOOT. PT ALSO HAS EDEMA TO RT KNEE. PT IS ALERT AND ORIENTED, AND WAS ABLE TO ANSWER ALL ADMISSION ASSESSMENT QUESTIONS WITHOUT DIFFICULTY. PT DENIED ANY NEED FOR PAIN MEDS AT PRESENT. FAMILY AT BEDSIDE VISITING THIS IS PT'S BIRTHDAY TODAY. 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 PT TRANSFERRED TO BED WITH 1 ASSIST USING GAIT BELT AND ASSIST TO CONTROL DESCENT. 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 BED ALARM IS ON AND REPORT HAS BEEN GIVEN TO SR. WENDY RN. CALL LIGHT IS IN REACH AND PT STATES THAT HE IS COMFORTABLE.
--- NOTE | 2019-06-02 18:55 | NUR ---
BS 115. NO INSULIN GIVEN. CARVEDILOL AND COUMADIN GIVEN. PT DENIES PAIN. FEELS TIRED AND WANTS TO REST. WILL GIVE REPORT TO NIGHT NURSE TO CONTINUE TO MONITOR.
[2019-06-02 19:16] VITALS: BP 186/87
--- NOTE | 2019-06-03 05:28 | NUR ---
ASSESSMENT: PT REMAIN ALERT AND ORIENT TIMES FOUR. STATE THAT HE STILL FEELS WEAK. PERFERS THAT THE LIGHT BE KEPT LOW R/T THE LIGHT BOTHERS HIS EYES. SLIGHT LEFT EYE DROOP. REMAINED SAFE AND DID ADHERE TO SAFETY MEASURES. BLOOD SUGAR WAS 205. CONSULT FOR NEPHROLOGY NOTED. WILL CONTACT IN THE AM. DID NOT REQUEST ANYTHING FOR RIGHT KNEE PAIN. SLOW PROGRESS, WILL CONTINUE TO MONITOR.
[2019-06-03 06:09] LABS: HEMATOCRIT 35.4 % (42.0-52.0); HEMOGLOBIN 11.9 gm/dL (14.0-18.0); MCH 28.3 pg (26.0-34.0); MCHC 33.6 g/dL (28.0-37.0); MCV 84.1 fL (80.0-100.0); RBC 4.21 mil/uL (4.50-6.00); RDW 15.4 % (10.5-14.5); WBC 7.5 thou/uL (4.0-11.0)
[2019-06-03 06:20] LABS: ALBUMIN 2.6 g/dL (3.4-5.0); CREATININE 1.7 mg/dL (0.7-1.3); PHOSPHORUS 3.5 mg/dL (2.5-4.9); POTASSIUM 4.3 mmol/L (3.5-5.1)
[2019-06-03 07:40] VITALS: BP 148/70
--- NOTE | 2019-06-03 09:06 | NUR ---
ASSUME PT CARE AT 0700. REPORTS DIDN'T SLEEP WELL LAST NIGHT. ENCOURAGED PT TO TALK TO ANATOLY FOR SLEEPING AID.VSS ON RA. LABS REVIEWED. PT REPORTS LAST BM WAS LAST NIGHT. DENIES PAIN, N/V. SOB. BS 183, 17 UNITS OF INSULIN GIVEN WITH MORNING MEDS. TAKE MEDS WHOLE WITHOUT DIFFICULTY. REASSESSMENT PER CHART. PT TRANSFERRED TO BED WITH 1 ASSIST USING GAIT BELT AND ASSIST TO CONTROL DESCENT.EDEMA AND BRUIDING NOTED AT RT FOOT AND PT HAS SURGICAL SHOE FOR WB TO THAT FOOT. PT ALSO HAS EDEMA TO RT KNEE. 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 PT TRANSFERRED TO BED WITH 1 ASSIST USING GAIT BELT. 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 FALL PRECAUTION IN PLACE. OT WORKS WITH PT NOW. WILL CONTINUE TO MONITOR.
--- NOTE | 2019-06-03 13:25 | NUR ---
Nutrition: Received consult stating "pt/family request". Admit to rehab unit with acute thalamic CVA. Extreme class 3 obesity with BMI 42. Noted hx of type 2 DM, acute renal failure, HTN. On renal diet with intake recorded 75-100% of meals. K-5.5, A1C 13.7. Sleeping on attempts to visit. Will followup for further info/receptiveness to education 06/03.
[2019-06-03 19:14] VITALS: BP 182/78
[2019-06-03 22:45] VITALS: BP 164/93
[2019-06-04 05:37] LABS: ALBUMIN 2.6 g/dL (3.4-5.0); CALCIUM 8.9 mg/dL (8.5-10.1); CREATININE 1.6 mg/dL (0.7-1.3); PHOSPHORUS 3.8 mg/dL (2.5-4.9); POTASSIUM 3.9 mmol/L (3.5-5.1)
[2019-06-04 06:46] LABS: INR 2.2; PROTIME 23.1 Seconds (9.3-11.4)
[2019-06-04 07:40] VITALS: BP 154/83
--- NOTE | 2019-06-04 08:35 | NUR ---
Nutrition: Seen for follow up today as pt was sleeping on education attempts 06/03. Just woke up for breakfast. RD initially received consult for "pt/family request." Also seen per BMI >40 (42.3 kg/m2). Pt is on a renal diet. EMR states DM II, CKD stage 3. A1c 13.7. Pt reports past education on his diabetes, denies wanting more education/review. Reports education by provider on his CKD. Pt allowed brief education to be given for CKD. Encouraged very low sodium intake and touched on high phos, high potassium foods. Phos WNL at 3.8, K+ returned to WNL at 3.9 per daily 06/04 labs, but previously high. Pt with very little interest in nutrition ed. Reinforced low Na concept to help prevent extra fluid retention/weight gain. Averaging > 75% meals. Low risk.
--- NOTE | 2019-06-04 10:00 | NUR ---
CHART REVIEW, CM VISITED WITH PT AT BEDSIDE, HE IS A & O X 3, AND ABLE TO MAKE HIS NEEDS KNOW. INTRO TO CM, DCP, OUTPT THERAPY AND HH. HE REPORTED GOOD DC TALK IS WANT I WANT TO HERE" LIVE ALONE IN HOUSE, 12-15 STEPS WITH LEFT SIDED HAND RAIL. MOM ABDULAZIZ LIVES 4-5 BLOCKS AWAY. NO DME, MANAGE OWN MEDIATION, ABLE TO GIVE SELF INSULIN SHOTS, DRIVES VEHICLE AND WORKS OUTSIDE THE HOME. DR MUNOZ IS PRIMARY "/BISMARK. WILL CONT FOLLOWING NEEDED FOR DC NEEDS.
--- NOTE | 2019-06-04 14:26 | NUR ---
ASSUMED CARE AT 0700. 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 LUNGS ARE CLEAR. ABD IS SOFT WITH BSX4. UP WITH ASSIST OF GATI BELT AND WALKER. IS AT BEDSIDE. FALL AND SAFEY PROTOCOLS IN PLACE. DENIES PAIN AT THIS TIME. CONTINES TO PROGRESS SLOWLY TOWRADS D/C GOALS. WILL CONTDINUE TO MONITER.
[2019-06-04 20:00] VITALS: BP 156/99
--- NOTE | 2019-06-05 03:55 | NUR ---
ASSESSMENT: PT REMAIN ALERT AND ORIENT TIMES FOUR. DENIES PAIN. LEFT EYE STILL REMAIN HALF OPEN. DENIES BLURRINESS AND PAIN IN EYE. PERFER TO HAVE LIGHTING AT A LOW LEVEL EYE HEALS. USES URINAL ON THE SIDE OF THE BED. NO BM. BLOOD SUGAR FOR THIS SHIFT WAS 116. NO HUMALOG INSULIN GIVEN. GOOD/SLOW PROGRESS TOWARDS DC GOALS, WILL CONTIUE TO MONITOR.
[2019-06-05 05:35] LABS: ALBUMIN 2.8 g/dL (3.4-5.0); CALCIUM 8.8 mg/dL (8.5-10.1); CREATININE 1.6 mg/dL (0.7-1.3); PHOSPHORUS 3.8 mg/dL (2.5-4.9); POTASSIUM 4.1 mmol/L (3.5-5.1)
[2019-06-05 06:41] LABS: INR 1.9; PROTIME 19.8 Seconds (9.3-11.4)
[2019-06-05 07:30] VITALS: BP 133/74
--- NOTE | 2019-06-05 08:06 | HC ---
[facility] [place] [address] CONSULTATION Name: BISMARK STEIN Room #: 506-1 ADM IN M.R.#: [id number] Admission: 06/02/19 Attend Phys: Jarrett Johnson MD Discharge: Date of : 69 Report #: [id number] THIS REPORT FOR: //name// CC: Jarrett Johnson [facility] unknown DATE OF SERVICE: 06/03/2019 CONSULTING PHYSICIAN: Jarrett Johnson M.D. REASON FOR CONSULTATION: Uncontrolled type 2 diabetes mellitus. HISTORY OF PRESENT ILLNESS: This is a 54-year-old male patient who has medical background significant for multiple medical issues including obesity, type 2 diabetes mellitus, hypertension, hyperlipidemia, status post mitral valve replacement. The patient was admitted about a week ago to [facility] with what turned out to be a left thalamic stroke. The patient presented with mental status changes, weakness, confusion and the stroke was identified shortly thereafter. On presentation, the patient indicated that he is on a combination of glimepiride 4 mg daily as well as Lantus 30 units daily and Humalog 10 units before meals; however, on further monitoring and assessment, the patient had a hemoglobin A1c of 13.7 reflecting very poor control to begin with. Since then, the patient was placed on a basal bolus system here in the hospital consisting of Lantus insulin 34 units at night and Humalog insulin 14 units before meals with which he has done fairly well with most blood glucose values falling between 120 and 180 mg/dL over the past 3 days. There were no recordings of major hypoglycemic episodes in the hospital. The patient is not aware of issues of retinopathy, but was found to have CKD as well as the current issues with his CVA. REVIEW OF SYSTEMS: CONSTITUTIONAL: Fatigue, tiredness, but not fever or chills. PULMONARY: Shortness of breath and cough and hemoptysis. CARDIAC: Palpitations, lightheadedness, but not syncope or chest pain. HEENT: Negative for congestion, nasal drainage. ABDOMEN: Negative for abdominal pain, nausea, OR vomiting. NEUROLOGY: Lightheadedness, confusion, but not seizures or loss of consciousness. MUSCULOSKELETAL: Noted for right foot pain. Otherwise, review of systems noncontributory other than those mentioned in HPI. PAST MEDICAL HISTORY: 1. Type 2 diabetes mellitus. 2. Hypertension. 3. Hyperlipidemia. [address] [address] CONSULTATION Name: BISMARK STEIN Room #: 506-1 [facility] IN M.R.#: [id number] Admission: 06/02/19 Attend Phys: Jarrett Johnson MD Discharge: Date of : 69 Report #: [id number] 4. Obesity. 5. Mitral valve replacement. 6. CVA. MEDICATIONS: Include Lantus insulin 34 units at night, Humalog insulin 14 units before meals, atorvastatin 20 mg daily, aspirin 81 mg daily, losartan 25 mg daily, warfarin 4 mg daily, carvedilol 25 mg b.i.d. ALLERGIES: No known drug allergies. FAMILY HISTORY: Noncontributory. SOCIAL HISTORY: The patient lives alone. He is single, works at [employer]. Denies use of tobacco or illicit drugs. PHYSICAL EXAMINATION: GENERAL: This is a pleasant middle-aged -Vietnamese male patient who is in no apparent pain or distress. VITAL SIGNS: Blood pressure is 148/70 mmHg, heart rate is 69 beats per minute, respirations 18 per minute, temperature 36.8 degrees. HEENT: Anicteric sclerae. Intact extraocular motions. NECK: Supple without JVD, carotid bruits or lymphadenopathy. I do not appreciate thyromegaly. CHEST: Clear to auscultation with moderate air entry bilaterally. Scattered rales, but no rhonchi or wheezes. HEART: Regular rate and rhythm without murmurs or gallops. ABDOMEN: Obese, but soft and lax without tenderness or organomegaly has active bowel sounds. EXTREMITIES: Lower extremity exam is noted for trace ankle edema bilaterally with tenderness over the right foot. NEUROLOGIC: Awake, alert and oriented to time, place and person. The remainder of examination is nonfocal. PSYCHIATRIC: Pleasant, interactive, appropriate. Normal mood and affect. SKIN: No rash, ulcerations are noted. LABORATORY DATA: Blood glucose 240, it was 183. White blood count 7.5, hemoglobin 11.9, hematocrit 35.4, platelets 165, BUN 24, creatinine 1.7, estimated GFR 52, calcium 9.0, phosphorus 3.5, albumin 2.6. ASSESSMENT AND PLAN: 1. Type 2 diabetes mellitus. As noted above, the patient has a baseline of poor control as per his acknowledgement and the recorded hemoglobin A1c. He has done relatively well on the current insulin regimen during his hospital stay; however, he has had a particular issue with rising postprandial blood glucose values. That said, I would rate as Humalog meal coverage to 18 units per meal while maintaining the current Lantus and supplemental scale coverage. Blood [facility] [address] [place] [address] CONSULTATION Name: BSIMARK STEIN Room #: 506-1 ADM IN M.R.#: [id number] Admission: 06/02/19 Attend Phys: Jarrett Johnson MD Discharge: Date of : 69 Report #: [id number] glucose monitoring will continue a.c. and at bedtime and further dose adjustments will be made accordingly. 2. Hypertension. The patient's level of blood pressure control is satisfactory in the current regimen, he is to continue with that. 3. Hyperlipidemia. The patient is currently on atorvastatin and tolerates it well. He is advised to continue that. 4. Chronic kidney disease. The patient has kidney function studies that are consistent with stage 3A chronic kidney disease. It would be prudent to achieve and maintain adequate blood pressure and blood glucose control to ensure the stability of this aspect. I certainly appreciate this consultation by Dr. Johnson. <ELECTRONICALLY SIGNED> By: Alfonzo Hughes MD 06/05/19 0806 [id number] Alfonzo Hughes MD /nt
--- NOTE | 2019-06-05 10:16 | H ---
[facility] [place] [address] HISTORY AND PHYSICAL Name: BISMARK STEIN Room #: 506-1 ADM IN .R.#: [id number] Admission: 06/02/19 Attend Phys: Jarrett Johnson MD Discharge: Date of : 69 Report #: [id number] THIS REPORT FOR: //name// CC: Jarrett Johnson [facility] unknown DATE OF SERVICE: 06/02/2019 HISTORY OF PRESENT ILLNESS: This is a 54-year-old -Canadian male who presented to the Emergency Department with stroke-like symptoms. He has had waxing and waning of his symptoms, but was confirmed on MRI to have a small acute left thalamic infarct. He was examined by Neurology, Cardiology and Nephrology. He underwent a RODRIGUEZ with ejection fraction of 60-65%. The patient has history of mechanical prosthetic valve and takes Coumadin at home. Goal INR is 2.5-3.5. The patient also has type 2 diabetes that has been uncontrolled. Endocrinology was consulted and has been adjusting medications. She was also noted to have vitamin D deficiency and started on oral replacement due to the patient's stroke and his new onset debility, he is admitted to [address] [place] [address] rehab for physical, occupational and speech therapies. Today, the patient denies headache or dizziness. He reports double vision is gone at present time. He denies cough or shortness of air, chest pain. He denies nausea, constipation or abdominal pain. He is having regular bowel movements. He denies any dysuria or urine retention. He does have pain in his right foot and his right knee. PAST MEDICAL HISTORY: Hypertension, diabetes, history of A-flutter, acute renal failure with previous dialysis, bacterial endocarditis with septic emboli, brain injury, mitral valve replacement in 2008. ALLERGIES: No known drug allergies. CURRENT MEDICATIONS: Insulin 34 units subQ of Lantus at bedtime, Voltaren gel 1 gram q.i.d. topical, NovoLog 14 units with meals, nortriptyline 10 mg at bedtime, Organ one tablet q.4 hours p.r.n., vitamin D 50,000 units weekly, Coumadin 4 mg daily in the evening, losartan 25 mg daily, atorvastatin 20 mg daily, Protonix 40 mg daily, carvedilol 25 mg b.i.d., sliding scale a.c. and at bedtime NovoLog insulin, Tylenol 650 q.6 hours p.r.n., Zofran q.4 hours p.r.n. CODE STATUS: Full code. HABITS: The patient is a nonsmoker, nondrinker, no illicit drug use. SOCIAL HISTORY: The patient lives in a house alone. He has 14 stairs to enter and then all living is on 1 level. Utilize no assistive device. He was independent with ADLs and IADLs. 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 He still drives. He is right handed. He denies any fall history. [facility] [address] [place] [address] HISTORY AND PHYSICAL Name: BISMARK STEIN Room #: 506-1 [facility] IN ..#: [id number] Admission: 06/02/19 Attend Phys: Jarrett Johnson MD Discharge: Date of : 69 Report #: [id number] REVIEW OF SYSTEMS: Remainder of his 14-point review of systems negative except as listed in HPI. PHYSICAL EXAMINATION: VITAL SIGNS: BP 147/68, respirations 16, pulse 67, temperature 97.8, O2 sat 100% on room air. GENERAL: He is awake, alert. He is oriented x 4. He is in no acute distress. HEENT: Head is normocephalic. Eyes, he has intact EOMs on the right. His left eyelid is closed; however, he can open it on command, does have a probable hemianopsia. His double vision has improved. NECK: No lymphadenopathy. CARDIAC: Regular rate and rhythm. S1, S2 intact. CHEST: Lungs are clear to auscultation. No crackle, no wheeze. ABDOMEN: Bowel sounds are positive. Soft, nontender, nondistended. He is obese. GENITOURINARY: No CVA tenderness. EXTREMITIES: Functional use of the bilateral upper extremities. He has no tremors or clonus. Mine Car Dispatcher are grossly equal. Strength of the upper extremities, approximately 4/5. He is able to lift bilateral lower extremities antigravity. He has some tenderness around the right lateral dorsal aspect of the foot. No knee tenderness with palpation. No pedal edema bilaterally, no calf tenderness bilaterally. NEUROLOGIC: As noted above on the eyelid droop, he does have sensation intact bilateral. He has slow, but no slurred speech. He does have a mild right facial droop. PSYCHIATRIC: Pleasant affect. IMPRESSION: 1. Acute left thalamic cerebrovascular accident. 2. Left hemianopsia. 3. Right metatarsal fractures, weightbearing as tolerated in a postop shoe. 4. History of mitral valve replacement, on chronic anticoagulation. 5. History of endocarditis. 6. Hypertension. 7. Type 2 diabetes, not controlled. 8. Chronic kidney disease. 9. History of atrial flutter. PLAN: The patient has been admitted to acute inpatient rehabilitation for physical, occupational and speech therapies. He will continue to have his hospitalist physician followup for medical management along with Cardiology and Endocrinology. He will have a neuropsychology evaluation as well. Orthopedics would like him to follow up at [facility] in 3 weeks for repeat x-ray surveillance of the right foot. He is to wear an orthopedic postop shoe while ambulating on the right foot. The patient will have Social work services following for discharge planning needs. He will have a team conference next [facility] [address] [place] [address] HISTORY AND PHYSICAL Name: BISMARK STEIN [place] Room #: 506-1 ADM IN ..#: [id number] Admission: 06/02/19 Attend Phys: Jarrett Johnson MD Discharge: Date of : 69 Report #: [id number] Saturday. He will have a renal function panel and CBC in the morning. He is on a renal diet. Weights will be checked on admission and weekly. Please see extensive orders. Thank you very much. <ELECTRONICALLY SIGNED> By: ROBERT Cameron 06/05/19 1016 [id number] ROBERT Cameron /nt
--- NOTE | 2019-06-05 18:33 | NUR ---
PT ALERT AND ORIENTED TIMES FOUR. BP ELEVATED THIS EVENING SCHEDULED BP MEDICATIONS GIVEN. OTHER VSS, ROOM AIR. PT DENIES PAIN/SOA. PT WORKED WELL PT/OT TODAY. PT TOLERATED MEDS AND MEALS. PT AT BEDSIDE THIS AFTERNOON. PT SLOWLY PROGRESSING [facility] POC GOALS.
[2019-06-05 19:15] VITALS: BP 175/89
--- NOTE | 2019-06-06 00:09 | NUR ---
PT ASSESSMENT COMPLETED AND VSS. MEDS GIVEN ORDERED AND WELL TOLERATED. FALL PRECAUTIONS IN PLACE. INSULIN GIVEN FOR BG OF 180. SNACK PROVIDED AND COMPLETED. SLEEPING WELL. DENIES NEEDS. PT WANTS A GOOD NIGHT SLEEP. WILL CONTINUE TO MONITOR FREQUENTLY.
[2019-06-06 06:12] LABS: INR 1.8; PROTIME 18.4 Seconds (9.3-11.4)
[2019-06-06 08:00] VITALS: BP 152/97
--- NOTE | 2019-06-06 18:35 | NUR ---
ASSUMED CARE OF PT AT 0715. PT IS A&OX4, BLOOD PRESSURE ELEVATED, BUT MANAGED WITH PO MEDICAITONS. PT WEIGHT BEARING TOLERATED WITH RIGHT SHOE ON WHEN OOB. RIGHT EYE PATCH WORN WHEN WITH THERAPY. ACCU CHECKS ACHS AND MANAGED WITH INSULIN. PT DENIES PAIN AND PARTICIPATED IN SCHEDULED THERAPIES. FALL PRECAUTIONS IN PLACE AND NURSING WILL CONTINUE TO MONITOR.
[2019-06-06 19:30] VITALS: BP 166/97
--- NOTE | 2019-06-07 01:44 | NUR ---
PATIENT ASSESSMENT COMPLETED. CONTACTED GLUE CLAMP OPERATOR ABOUT ELEVATED BP. NO NEW ORDERS. ALSO CONTACTED GLUE CLAMP OPERATOR BG OF 86 THIS EVENING AND PER ORDERS HELD HS MALICK. FALL PRECAUTIONS IN PLACE. VOIDING LARGE AMOUNT OF URINE PER URINAL. SLEEPING WELL. WILL CONTINUE TO MONITOR FREQUENTLY.
[2019-06-07 05:27] LABS: INR 2.1; PROTIME 22.3 Seconds (9.3-11.4)
[2019-06-07 08:00] VITALS: BP 153/91
--- NOTE | 2019-06-07 14:34 | NUR ---
ASSUMED CARE OF PT AT 0715. PT IS A&OX4 AND VITAL SIGNS ARE STABLE. PT REPORTS NO PAIN AND PARTICIPATED IN THERAPIES WITH NURSING STAFF. BLOOD PRESSURE CONTINUES TO BE ELEVATED, BUT MANAGED WITH PO MEDICAITONS. LANTUS HELD LAST NIGHT, ORDERS FOR SCHEDULED HUMALOG D/C THIS SHIFT, CONTINUE LOW DOSE SS ACHS WITH ACCU CHECKS. PT REPORTS FEELING VERY TIRED AND WAS ALLOWED TO REST FOR THE MAJORITY OF THE SHIFT. FALL PRECAUTIONS IN PLACE AND NURSING WILL CONTINUE TO MONITOR.
[2019-06-07 19:24] VITALS: BP 172/87
--- NOTE | 2019-06-08 04:12 | NUR ---
Assumed pt care at 1900. A/OX4,VSS. Up with AX1,RW/GB ,WBAT to RLE.Denies pain to right foot when resting only when up on it but declined need for pain meds. Voiding adequately via urinal. Fall precautions in place,will continue to monitor pt.
[2019-06-08 06:09] LABS: INR 2.4; PROTIME 25.4 Seconds (9.3-11.4)
[2019-06-08 08:00] VITALS: BP 162/78
--- NOTE | 2019-06-08 15:47 | HC ---
[facility] [place] [address] [place] [address] CONSULTATION Name: BISMARK STEIN Room #: 506-1 ADM IN M.R.#: [id number] Admission: 06/02/19 Attend Phys: Jarrett Johnson MD Discharge: Date of : 69 Report #: [id number] THIS REPORT FOR: //name// CC: Jarrett Johnson [facility] unknown DATE OF SERVICE: 06/06/2019 NEUROBEHAVIORAL STATUS EXAMINATION ATTENDING PHYSICIAN: Jarrett Johnson MD COMPUTER GRAPHIC ARTIST: Elmo Martinez, PhD CLINICAL PRESENTATION: The patient is a 54-year-old male admitted to the rehabilitation unit at [facility] for comprehensive inpatient rehabilitation program to improve functional mobility, activities of daily living and self-care and mental status secondary to deficits from a small acute left thalamic infarction. He initially presented to the Emergency Room with stroke-like symptoms that were waxing and waning. He has a history of a mechanical prosthetic valve and did utilize his Coumadin. Additionally, he carries a diagnosis of type 2 diabetes that has been uncontrolled. Diagnostic impressions on admission to the rehab unit included an acute left thalamic CVA, left hemianopsia, right metatarsal fracture, weightbearing as tolerated, history of mitral valve replacement, on chronic anticoagulation, history of endocarditis, hypertension, type 2 diabetes mellitus, not controlled, chronic kidney disease and a history of atrial flutter. A complete description of his medical condition, history and medications can be found in his medical record. Neuropsychological consultation was requested to provide assistance in the assessment of cognitive and emotional status and to provide recommendations and services. Prior to this most recent admission, he reports living independently in his own home. The patient is a high school graduate. 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 He is not and has no children. Peer support is described as poor as he socially isolated. His aunt indicated that upon entering his home, they discovered that he was not taking his insulin properly. His refrigerator was full of insulin that had not been used. Additionally, the house was very dirty and unkempt. There was trash scattered throughout on the floor with things not thrown away. He appeared to have significant difficulty in managing instrumental activities of daily living. His mother indicates a potential depressive episode following [facility] [address] [place] [address] CONSULTATION Name: BISMARK STEIN Room #: 506-1 ADM IN ..#: [id number] Admission: 06/02/19 Attend Phys: Jarrett Johnson MD Discharge: Date of : 69 Report #: [id number] the loss of a female peer in relationship he was hoping would lead to marriage. TECHNIQUES UTILIZED: Clinical interview, review of medical records, staff consultation and behavioral observation, mini mental status exam 2 standard version, clock drawing, verbal fluency assessment, and family interview -- mother and aunt. EXAMINATION FINDINGS: The patient was alert and cooperative with the assessment. He accurately described events surrounding his admission. There is no evidence of aphasia. His thoughts are logical and goal oriented. There is no evidence of thought disorder. He indicates an awareness of the poor method in which he has been managing his health. Symptoms are reported to include memory, sleep disturbance and anxiety. He does not report subjective depression, difficulty with word finding or problems with appetite. His speech was halting throughout the interview. The patient does not report any previous treatment for anxiety or depression. There is no report of alcohol/drug abuse. His performance on the MMSE 2 brief version is within normal limits with a raw score of 15 of 16. Performance on the MMSE 2 standard version was in the low average range with a raw score of 26 of 30, T score of 43 and percentile rank of 24. The patient had difficulty with serial sevens with a score of 3 at five. He also had difficulty with accurately copying a simple geometric design. Clock drawing was impaired with leaving out a number. He required assistance in accurately drawing all numbers. Deficit in visual-spatial organization is suggested. Letter fluency is in the low average range with a raw score of 19, T score of 41 and percentile rank of 18. There is evidence of perseveration was noted in verbal fluency. Category fluency was extremely low with a raw score of 24, T score 24 and percentile rank of less than 1. Overall, total fluency was in the borderline range with a T score of 32 and percentile rank of 4. The patient appears to be presenting with variability in cognition that suggests deficits in executive functioning and visual spatial construction. Additionally, while he denies subjective depression, the poor manner in which he is managing his health and living conditions suggest a mood disorder. 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 Unspecified depressive disorder. [address] [address] CONSULTATION Name: BISMARK STEIN [place] Room #: 506-1 [facility] IN [place]#: [id number] Admission: 06/02/19 Attend Phys: Jarrett Johnson MD Discharge: Date of : 69 Report #: [id number] RECOMMENDATIONS: The patient will likely require increased assistance in the management of his medical condition. His family indicated desire to help him manage a return to independent living following discharge. He may also benefit from a treatment program for depression. Consider the use of an antidepressant medication along with psychological counseling to assist in adjustment. Behavioral strategies that can be used to assist in compensation for variability in cognition will also be helpful. A followup Neuropsych assessment to clarify the severity of cognitive deficits may also be of benefit. Thank you very much for allowing me to provide the consultation on this patient. <ELECTRONICALLY SIGNED> By: Elmo Martinez, PhD 06/08/19 1547 [id number] Elmo Martinez, PhD /nt
[2019-06-08 19:44] VITALS: BP 158/76
--- NOTE | 2019-06-08 19:44 | NUR ---
ASSUMED CARE OF PT AT 0715. PT IS A&OX4 ABLE TO VOICE HIS NEEDS. VS MONITOR, B/P GIVEN ORDERED SEE Mobile Event Guide. DENIES PAIN, N/V, SOB. ACCU CHECKS ACHS AND MANAGED WITH INSULIN. PT WEIGHT BEARING TOLERATED WITH RIGHT SHOE ON WHEN OOB. RIGHT EYE PATCH WORN WHEN WITH THERAPY. PT DENIES PAIN AND PARTICIPATED IN SCHEDULED THERAPIES. OT GAVE PT SHOULDER TODAY. UP WITH A WALKER WITH MIN ASSIST. HIS GOALS TO PARTICIPATE WITH THERAPY AND ABLE TO GO HOME AND GO TO WORK. FALL PRECAUTIONS IN PLACE, CALL LIGHT WITHIN REACH. CALL APPROPRIATELY. GAVE REPORT TO NIGHT NURSE TO CONTINUE TO MONITOR.
--- NOTE | 2019-06-08 23:49 | NUR ---
PT ASSESSMENT COMPLETED AND VSS. MEDS GIVEN ORDERED AND WELL TOLERATED. FALL PRECAUTIONS IN PLACE. VOIDING WELL PER URINAL. INSULIN GIVEN ORDERED AND SNACK PROVIDED. SLEEPING WELL. WILL CONTINUE TO MONITOR.
[2019-06-09 08:10] VITALS: BP 176/101
--- NOTE | 2019-06-09 12:40 | NUR ---
team meeting, recommendation: nursing to education on giving on dm, bs checks. pt hx of non-compliance with medication [facility]. outpt neuro phys, initial 24th supervision, ability jerry for driving. no driving and medication manage. dc 06/12/19, needs fww. will need family support.
--- NOTE | 2019-06-09 13:35 | NUR ---
ASSUMED CARE OF PT AT 0715. REPORTS DIDN'T SLEEP WELL LAST NIGHT. NOTIFIED DR. SUTHERLAND AND WILL ADD TRAZADONE TO HELP WITH INSOMIA.PT IS A&OX4 ABLE TO VOICE HIS NEEDS. VS MONITOR B/P WAS 176/101 HR 60. B/P GIVEN ORDERED SEE [facility]. DENIES PAIN, N/V, SOB. ACCU CHECKS ACHS AND MANAGED WITH INSULIN. PT WEIGHT BEARING TOLERATED WITH RIGHT SHOE ON WHEN OOB. RIGHT EYE PATCH WORN WHEN WITH THERAPY. PT DENIES PAIN AND PARTICIPATED IN SCHEDULED THERAPIES. OT GAVE PT SHOULDER TODAY. UP WITH A WALKER WITH MIN ASSIST. TEAM MEETING TODAY. PT WILL DISCHARGE ON THIS COMING SATURDAY. DISCUSSED WITH PT ABOUT CARE PLAN AND ENCOURAGED PT TO PARTICIPATE TOWARDS DISCHARGE GOALS. FALL PRECAUTIONS IN PLACE, CALL LIGHT WITHIN REACH. CALL APPROPRIATELY. WILL CONTINUE TO MONITOR.
[2019-06-09 18:04] VITALS: BP 161/69
[2019-06-09 19:47] VITALS: BP 184/102
--- NOTE | 2019-06-10 01:35 | NUR ---
ASSUMED CARE AROUND 1900. AXOX4. DENIES CHEST PAIN, SOB, N/V/C. NO S/S ACUTE DISTRESS NOTED OR REPORTED AT THIS TIME. WILL CONT TO MONITOR FOR ANY CHAANGES IN CONDITION.
[2019-06-10 07:09] LABS: ALBUMIN 2.9 g/dL (3.4-5.0); CREATININE 1.7 mg/dL (0.7-1.3); PHOSPHORUS 3.5 mg/dL (2.5-4.9); POTASSIUM 3.5 mmol/L (3.5-5.1)
[2019-06-10 07:38] VITALS: BP 172/83
[2019-06-10 09:24] LABS: INR 2.7; PROTIME 27.7 Seconds (9.3-11.4)
[2019-06-10 12:30] VITALS: BP 142/92
--- NOTE | 2019-06-10 16:01 | NUR ---
ASSUMED CARE OF PT AT 0715. HAD TRAZODONE, SLEPT BETTER LAST NIGHT. PT IS A&OX4 ABLE TO VOICE HIS NEEDS. VS MONITOR B/P WAS HIGH THIS AM. B/P GIVEN ORDERED AND IT WENT DOWN SEE teextee IN DETAILS. DENIES PAIN, N/V, SOB. ACCU CHECKS ACHS AND MANAGED WITH INSULIN. DR. MILLER CAME AND CHANGE INSULIN ORDER. PT WEIGHT BEARING TOLERATED WITH RIGHT SHOE ON WHEN OOB. RIGHT EYE PATCH WORN WHEN WITH THERAPY. PT DENIES PAIN AND PARTICIPATED IN SCHEDULED THERAPIES. OT GAVE PT SHOULDER TODAY. UP WITH A WALKER WITH MIN ASSIST. FALL PRECAUTIONS IN PLACE, CALL LIGHT WITHIN REACH. CALL APPROPRIATELY. WILL CONTINUE TO MONITOR.
[2019-06-10 19:18] LABS: HEMATOCRIT 38.3 % (42.0-52.0); HEMOGLOBIN 12.3 gm/dL (14.0-18.0); MCH 27.9 pg (26.0-34.0); MCHC 32.1 g/dL (28.0-37.0); MCV 86.9 fL (80.0-100.0); RBC 4.41 mil/uL (4.50-6.00); RDW 15.6 % (10.5-14.5); WBC 9.2 thou/uL (4.0-11.0)
[2019-06-10 19:50] VITALS: BP 157/100
--- NOTE | 2019-06-11 00:29 | NUR ---
ASSESSMENT DONE AND VSS. MEDS GIVEN AND TOLERATED WELL. FALL PRECAUTIONS ON. SNACK PROVIDED. SLEEPING WELL. WILL CONTINUE TO MONITOR.
[2019-06-11 07:15] VITALS: BP 164/84
--- NOTE | 2019-06-11 13:21 | NUR ---
Nutrition followup: pt continues on renal diet eating 75-100% of meals. BG 94-131. A1C 13.7. Has refused recent attempts for diet review. CKD stage 3. Renal/material stress tester following. Vitamin D level-22. On supplement. No new weight to assess. Would recommend adding carb controlled to diet order, although recent BG controlled, would benefit from calorie controlled aspect of diet order also. BMI 42, extreme class 3 obesity. Continue as low risk.
[2019-06-11] MEDS ORDERED: MELATONIN5 M1 PO (14:10)
[2019-06-11] MEDS ORDERED: COLACE100 MG PO (14:10)
[2019-06-11] MEDS ORDERED: PROTONIX 20 MG20 MG PO (14:10)
[2019-06-11] MEDS ORDERED: NOVOLOG100 UNIT/1 SUBQ (14:10)
[2019-06-11] MEDS ORDERED: ERGOCALCIF50000 UNIT PO (14:10)
[2019-06-11] MEDS ORDERED: COUMADIN 2 MG TA2 M1 PO (14:10)
[2019-06-11] MEDS ORDERED: COZAAR100 MG PO (14:10)
[2019-06-11] MEDS ORDERED: LANTUS100 UNIT/M SUBQ (14:10)
--- NOTE | 2019-06-11 15:11 | NUR ---
Following for d/c planning needs. Reviewed chart and spoke with nurse, pt and pt's Aunt Analy. Pt is to be d/c home on Saturday. Aunt said she is not able to have patient stay at her home. Aunt is taking care of her 92 year old mother. Pt's mother was admitted to [facility] earlier this week. Pt's father lives in [facility] and is coming to stay with patient on Saturday. He has put in paperwork for FMLA and he is hopeful to stay with pt a week or 2. [employer] reportedly denied SNF and said pt would be at retirement level of care. Aunt wants to use [facility] for home health. Called [facility] and they are not in network with pt's insurance. Aunt then said she wanted to use [facility]. Called [facility] and they are no longer in network with insurance. Called [facility] and they are in network with insurance. Asked farm planner to fax referral to [facility]. Pt's PCP is Dr Mesa. Pt's aunt said pt had 17 unused boxes of insulin in his refrigerator at home. 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 Aunt wants to have diabetic education prior to discharge so she is more familiar with food choices for pt and diet. Asked inspector screen printing to speak with aunt and provide requested information. Aunt plans to transport pt home on Saturday after 1500. Will remain available to assist as needed.
--- NOTE | 2019-06-11 15:22 | NUR ---
dp sent hh referral to [facility]. Dp will call to make certain they received.
[2019-06-11 20:20] VITALS: BP 177/96
--- NOTE | 2019-06-11 20:20 | NUR ---
Assumed care approx. 0700 this AM. Patient very flat and grumpy this morning and afternoon. Patient anxious to be discharged and get back to work. No acute changes. HR and BP stable today with some slight HTN in the 140's systolic. No PRN hydralazine needed. Patient complained some of his right sided foot weakness, and said his goal is to keep progressing more with that leg and foot during therapy. Patient taught how to self inject insulin properly this afternoon. Patient demonstarted to this RN how to self inject his insulin and did fine post-education. Patient's aunt picked up prescriptions to be taken to chosen pharmacy so they are ready at time of discharge tomorrow. Patient seen to progress toward more plan of care goals today.
--- NOTE | 2019-06-12 04:01 | NUR ---
ASSUMED CARE OF PT AT 1915 ON 06/11/19. PT IS A&OX4. IS ON ROOM AIR. DENIES PAIN. IS UP WITH 1 ASSIST, Aric LERMA. HAS ORTHO SHOE ON RIGHT FOOT. PT REFUSED TO TAKE IT OFF & REGULAR SHOE ON THE LEFT. PT SLEPT IN BOTH SHOES. DAY SHIFT NURSE BRANDO REPORTED THAT PT WEARS RIGHT EYE PATCH WITH THERAPY. PT VOIDS PER UNRINAL. PT REPORTED THAT IS IS READY TO D/C HOME TODAY. PT IS STABLE. FALL PRECAUTIONS & HOURLY ROUNDING MAINTAINED. CALL LIGHT WITHIN REACH. WILL CONTINUE TO MONITOR. PT IS IN ROOM IN BED SLEEPING AT THIS TIME.
[2019-06-12 05:38] LABS: INR 3.6; PROTIME 37.5 Seconds (9.3-11.4)
[2019-06-12 06:11] VITALS: BP 158/99
[2019-06-12 07:30] VITALS: BP 135/77
[2019-06-12 10:34] VITALS: BP 137/77
--- NOTE | 2019-06-12 10:49 | NUR ---
pt dc home this evening aunt anisa [phone] will pick him up around 3pm, his dad candi hutton will come in later this evening from [facility]. liseth garcia (pt, ot, st, nursing and sw) fax dc order to [phone], phone # [phone]. liseth garcia should call aunt to set up meeting times for hh. aunt would like to talk with dietitian about what foods he should eat. pt and family will need dm training include insulin. aunt would like [facility] referral to [facility] to be sent."/pt and aunt anisa. referral faxed to [facility] and they check his insurance and reach out to pt and family.
--- NOTE | 2019-06-12 11:46 | NUR ---
ASSUMED CARES AT 0700. PT AWAKE, ALERT AND ORIENTED*4. DENIES PAIN. VITALS REMAIN STABLE. RIGHT FOOT ORTHO SHOE REMAINS IN PLACE WITH AMBULATION. CONTINUES TO HAVE RIGHT SIDED WEAKNESS. PT TO DC TODAY, DC INSTRUCTIONS AND EDUCATION TO BE COMPLETED WITH PT AND AUNT UPON DC. WALKER DELIVERED AND ADJUSTED TO PT'S HEIGHT. PT UP WITH 1 MIN ASSIST, GB AND WALKER AND TOLERATED WELL. Q1H VISUAL CHECKS. CALL LIGHT WITHIN REACH. FALL PRECAUTIONS IN PLACE
--- NOTE | 2019-06-12 15:46 | NUR ---
Nutrition: Renal, diabetic diets were both reviewed with pt and aunt. Prior education given to pt but he was not very receptive. Aunt is buying groceries and believe she will assist pt to comply. Encouraged outpatient followup and provided diabetes support group info.
== END 2019-06-12 15:58 | disposition home health service (06) | DRG 65 ==
PROVIDERS: Hospitalist; Nurse Practitioner; Nurse Practitioner Family; ADMIT Physical Medicine & Rehabilitation
DX: I63.9 Cerebral infarction, unspecified (principal); N17.9 Acute kidney failure, unspecified; H53.462 Homonymous bilateral field defects, left side; E46 Unspecified protein-calorie malnutrition; Z68.41 Body mass index [BMI] 40.0-44.9, adult; G31.84 Mild cognitive impairment of uncertain or unknown etiology; F32.9 Major depressive disorder, single episode, unspecified; R29.810 Facial weakness; Z60.2 Problems related to living alone; I12.9 Hypertensive chronic kidney disease with stage 1 through stage 4 chronic kidney disease, or unspecified chronic kidney disease; N18.3 Chronic kidney disease, stage 3 (moderate); E11.22 Type 2 diabetes mellitus with diabetic chronic kidney disease; E78.5 Hyperlipidemia, unspecified; E55.9 Vitamin D deficiency, unspecified; S92.301A Fracture of unspecified metatarsal bone(s), right foot, initial encounter for closed fracture; X58.XXXA Exposure to other specified factors, initial encounter; M10.061 Idiopathic gout, right knee; M17.11 Unilateral primary osteoarthritis, right knee; M25.461 Effusion, right knee; Z95.2 Presence of prosthetic heart valve; Y93.89 Activity, other specified; Y92.89 Other specified places as the place of occurrence of the external cause; Y99.8 Other external cause status
CPT/HCPCS: 10112

== ENCOUNTER 2020-08-07 14:56 | Emergency (ER) | payer OTHER ==
[~2020-08-07] VITALS: Ht 193 cm; Wt 146.1 kg
[~2020-08-07 14:56] MED LIST changes: +COLACE100 MG PO; +COZAAR100 MG PO; +ERGOCALCIF50000 UNIT PO; +MELATONIN5 M1 PO; +PROTONIX 20 MG20 MG PO; +ST. JOSEPH ASPI81 MG PO
[2020-08-07] MEDS ORDERED: GLIMEPIRIDE4 MG PO (15:31)
[2020-08-07 15:34] LABS: ABSOLUTE NEUTROPHILS 15.7 thou/uL (1.4-8.2); BASOPHILS 0.2 % (0.0-2.0); EOSINOPHILS 0.7 % (0.0-3.0); HEMATOCRIT 40.5 % (42.0-52.0); HEMOGLOBIN 13.1 gm/dL (14.0-18.0); LYMPHOCYTES 4.5 % (24.0-44.0); MCH 28.5 pg (26.0-34.0); MCHC 32.2 g/dL (28.0-37.0); MCV 88.5 fL (80.0-100.0); MONOCYTES 7.3 % (1.0-8.0); PLATELET COUNT 235 thou/uL (150-400); POLYS 87.3 % (36.0-66.0); RBC 4.58 mil/uL (4.50-6.00); RDW 15.4 % (10.5-14.5); WBC 18.1 thou/uL (4.0-11.0)
[2020-08-07 15:43] LABS: INR 2.6; PROTIME 26.8 Seconds (9.3-11.4)
[2020-08-07 15:52] LABS: ALBUMIN 3.6 g/dL (3.4-5.0); ANION GAP 11 mmol/L (7-16); BUN 32 mg/dL (7-18); CHLORIDE 105 mmol/L (98-107); CO2 24 mmol/L (21-32); CREATININE 2.5 mg/dL (0.7-1.3); GLUCOSE 255 mg/dL (74-106); LIPASE 115 U/L (73-393); POTASSIUM 4.8 mmol/L (3.5-5.1); SGOT 22 U/L (15-37); SGPT 29 U/L (30-65); SODIUM 140 mmol/L (136-145); TOTAL BILIRUBIN 0.3 mg/dL (0.2-1.0); TROPONIN-I <0.06 ng/mL (<0.06)
[2020-08-07 16:01] LABS: CALCIUM 8.6 mg/dL (8.5-10.1)
[2020-08-07 18:24] LABS: URINE BILIRUBIN NEGATIVE (Negative); URINE BLOOD 1+ (Negative); URINE CLARITY CLEAR; URINE COLOR YELLOW; URINE GLUCOSE-RANDOM* 1+ (Negative); URINE KETONES NEGATIVE (Negative); URINE LEUKOCYTES-REFLEX 1+ (Negative); URINE NITRITE-REFLEX NEGATIVE (Negative); URINE PROTEIN (DIPSTICK) 1+ (Negative); URINE UROBILINOGEN 0.2 E.U./dl (0.2-1.0)
[2020-08-07 18:36] LABS: BACTERIA-REFLEX >30 Many /HPF (None Seen); SQUAMOUS >10 Many /LPF (0-3); URINE WBC-REFLEX 6-15 Few /HPF (0-5)
[2020-08-07 18:37] LABS: CRYSTALS None Seen /LPF (None Seen); URINE RBC 3-10 Few /HPF (0-2)
[2020-08-07 18:38] LABS: FINE GRANULAR CASTS 0-3 Few /LPF (None Seen); WBC CLUMPS Few (None Seen)
[2020-08-07] MEDS ORDERED: BACTRIM DS TAB1 EACH PO (18:54)
[2020-08-07 19:17] VITALS: BP 150/67
--- NOTE | 2020-08-08 12:28 | EKG ---
[facility] [place] [address] ELECTROCARDIOGRAM REPORT Name: BISMARK STEIN [id number] Admission: 08/07/20 Attend Phys: Discharge: 08/07/20 Date of : 69 Report #: [id number] THIS REPORT FOR: cc: Ramesh Granda MD, Christopher B. 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: Valerie : 1965 Requested By: Nicky Prince Order Number: [id number] MD: Lyle eKrn Measurements Intervals [place] Rate: 77 P: 40 [place]: 204 QRS: 2 QRSD: 79 T: 109 QT: 369 QTc: 418 Interpretive Statements Sinus rhythm Borderline prolonged [place] interval Nonspecific T abnormalities, lateral leads J-Point elev, probable normal early repol pattern Compared to ECG 05/29/2019 03:18:37 T-wave abnormality now present ST (T wave) deviation now present Electronically Signed On 08-08-2020 12:28:36 WATER TREATMENT SPECIALIST by Lyle Kern [email or web address] <ELECTRONICALLY SIGNED> By: Lyle Kern MD, FACC 08/08/20 1228 1523 1523 Lyle Kern MD, [facility] /EPI
== END 2020-08-07 19:17 | disposition home or self-care (01) ==
LOC: ER 14:56
PROVIDERS: Physician Assistant
DX: N39.0 Urinary tract infection, site not specified (principal); N17.9 Acute kidney failure, unspecified; E78.5 Hyperlipidemia, unspecified; I12.9 Hypertensive chronic kidney disease with stage 1 through stage 4 chronic kidney disease, or unspecified chronic kidney disease; E11.22 Type 2 diabetes mellitus with diabetic chronic kidney disease; N18.30 Chronic kidney disease, stage 3 unspecified; Z99.2 Dependence on renal dialysis; Z79.01 Long term (current) use of anticoagulants; Z79.4 Long term (current) use of insulin; Z79.899 Other long term (current) drug therapy